=== PATIENT | female | born 1995 | race Caucasian/White ===

== ENCOUNTER 2017-09-29 11:19 | Emergency (ER) | payer OTHER, SELFPAY ==
[2017-09-29 11:20] VITALS: BP 115/63; PULSE 80; RESP 17; TEMP 37.1; O2SAT 98; BMI 25.5
--- NOTE | 2017-09-29 11:30 | NURSING ---
NO OLD EKGS
--- NOTE | 2017-09-29 11:34 | EKG12_ITS ---
Test Reason : AE Blood Pressure : / mmHG Vent. Rate : 076 BPM Atrial Rate : 076 BPM P-R Int : 156 ms QRS Dur : 082 ms QT Int : 362 ms P-R-T Axes : 049 059 037 degrees QTc Int : 407 ms Normal sinus rhythm Normal ECG Confirmed by DAYANA PEREZ MD ([id number]), technical editor YUNIOR DO ([id number]) on 09/30/2017 11:54:03 AM Referred By: DEON Confirmed By:DAYANA PEREZ MD
--- NOTE | 2017-09-29 11:40 | ED.RN ---
PT STATES THAT SHE THINKS THIS RELATED TO STRESS. PT STATES SHE DOES NOT HAVE MUCH OF A SUPPORT SYSTEM FAR UNDERSTANDING HER STRESS AND ANXIETY.
[2017-09-29] MEDS: hydrOXYzine PAM 25 MG Capsule PO (11:57)
[2017-09-29 12:52] VITALS: BP 113/62; PULSE 66; RESP 21; O2SAT 100
[2017-09-29 13:06] VITALS: RESP 16
--- NOTE | 2017-09-29 13:10 | ED.VISSUMM ---
- ER Visit Summary Date of Service: 09/29/17 Chief Complaint: Chest pain History of Present Illness: The patient is a 22 F who presents with chest pain and anxiety. Today she started with a dull pain in her left upper chest area. It radiates to her arm. Anxiety makes it worse. She denies shortness of breath. She has been having episodes like this for the past 3 years. She attributes it to her anxiety. She was on an antidepressant a few years ago but is currently not taking anything. She would like something for her anxiety to take at home. She is currently 15 weeks gestation. She denies any abdominal pain. She called her OB who sent her in here. Physical Examination: Vital signs reviewed. HEENT exam unremarkable. Heart is regular rate and rhythm without murmurs. Lungs are clear to auscultation. She does have left upper chest tenderness to palpation. Abdomen is soft and nontender. Extremities reveal no edema. Skin exam normal. Neurologic exam normal. Test Results: EKG is normal sinus rhythm with rate of 76. No ST changes. Troponin normal Emergency Department Course and Treatment: Patient was treated with Vistaril and feels better. We discussed the risks and benefits of giving Vistaril during . Patient wishes to treat as she states that her anxiety has become worse over the past couple of months. She wants something to take when her anxiety gets bad. I will give her this Vistaril for home. She will call her PCP and [employer] F[employer]ER for follow-up Treatment Plan: [] Disposition: Discharge Impression: Chest pain, anxiety This note was generated with [employer] dictation software. It may contain incorrect words, spelling, and punctuation that were not noted in review of the chart prior to signing ED Disposition - Plan for ED Patient: Chief Complaint: Chest Pain Referrals: Care Physician,No Primary [Primary Care Provider] -
--- NOTE | 2017-09-29 13:59 | ED.DEP ---
ED Disposition - Plan for ED Patient: Disposition: Home or Assisted Living Chief Complaint: Chest Pain Instructions: ED Chest Pain NonCardiac Prescriptions: hydrOXYzine pamoate capsule [Vistaril] 25 mg PO TID PRN PRN #30 cap PRN Reason: Anxiety Referrals: Care Physician,No Primary [Primary Care Provider] -
[2017-09-29 14:32] VITALS: BP 106/53; PULSE 94; RESP 16; O2SAT 98
== END 2017-09-29 14:33 | disposition home or self-care (01) ==
PROVIDERS: Emergency Provider Emergency Medicine
DX: O99.89 Other specified diseases and conditions complicating pregnancy, childbirth and the puerperium (principal); R07.9 Chest pain, unspecified; O99.342 Other mental disorders complicating pregnancy, second trimester; F41.9 Anxiety disorder, unspecified; Z3A.15 15 weeks gestation of pregnancy
CPT/HCPCS: 84484; 93005; 99283

== ENCOUNTER 2017-12-05 22:30 | Outpatient (CLI) | payer OTHER, SELFPAY ==
[2017-12-05 23:14] VITALS: BMI 27.4
[2017-12-05 23:28] LABS: Bacteria 0 SEEN /hpf (None Seen); Mucous, Urine 0 SEEN /hpf (<or=2+); Red Blood Cells-Urine 0 SEEN /hpf (0-5)
[2017-12-05 23:32] LABS: Color, Urine Yellow (Yellow); Glucose, Dipstick Normal (Normal); Ketone-Dipstick Negative (Negative); Leukocyte Esterase-Dipstick Negative /ul (Negative); Nitrite-Dipstick Negative (Negative); Occult Blood-Urine Negative /ul (Negative); Protein-Dipstick Negative (Negative); Urine Bilirubin Dipstick Negative (Negative); Urine Clarity Clear (Clear); Urine Urobilinogen Normal (Normal)
[2017-12-05 23:50] LABS: Squamous Epithelial Cells - UA 0-5 SEEN /hpf (5-10); White Blood Cells 0-5 SEEN /hpf (0-5)
--- NOTE | 2017-12-12 16:51 | OB.TRI.NOTE ---
History of Present Illness Date of Service: 12/05/17 Was patient seen by the physician?: No Reason For Visit: abdominal pain, back marco and headache. Date of Service: 12/05/17 Final ROGELIO: 03/20/18 Final ROGELIO Source: LMP Gestational age: 26 Weeks and 0 Days History of Present Illness: at 25 weeks with complaint of abdominal pain, back pain, and headache. Allergies No Known Allergies Allergy (Verified 12/05/17 23:15) NST - FHR Rate Baby A Baseline: 155 Variability:: Moderate Accelerations:: 15 x 15 Decelerations:: None NST Reactive:: Yes FHR Category:: Category I Uterine Activity:: None Impression/Plan A: Acute abdominal pain, False labor P: 1) PTL precautions given. No signs of labor. 2) D/C home.
== END 2017-12-06 00:10 | disposition home or self-care (01) ==
LOC: WPOUT 22:55 → WP 22:55
PROVIDERS: Visit Provider Obstetrics & Gynecology
DX: O47.02 False labor before 37 completed weeks of gestation, second trimester (principal); Z3A.25 25 weeks gestation of pregnancy
CPT/HCPCS: 59050; 81001; 99218; G0378

== ENCOUNTER 2018-03-09 21:47 | Outpatient (CLI) | payer OTHER, SELFPAY ==
[2018-03-09 22:21] VITALS: BMI 27.4
[2018-03-10 00:20] VITALS: RESP 16
--- NOTE | 2018-03-15 16:16 | OB.TRI.NOTE ---
History of Present Illness Date of Service: 03/15/18 Was patient seen by the physician?: No Reason For Visit: R/O LABOR Date of Service: 03/09/18 Final ROGELIO: 03/20/18 Final ROGELIO Source: LMP Gestational age: 38 Allergies No Known Allergies Allergy (Verified 03/09/18 22:23) Physical Exam Vitals: Vital Signs Resp 16 03/10/18 00:20 NST - FHR Rate Baby A Baseline: 150 bpm Variability:: Moderate Accelerations:: 15 x 15 Decelerations:: None NST Reactive:: Yes FHR Category:: Category I Uterine Activity:: irreg ctxs Impression/Plan 22 YOF high risk multigravida, 38 weeks false labor home w/ labor precautions, f/u in office as scheduled or prn
== END 2018-03-10 00:20 | disposition home or self-care (01) ==
LOC: WPOUT 22:14 → WP 03-10 08:10
PROVIDERS: Visit Provider Obstetrics & Gynecology
DX: O47.1 False labor at or after 37 completed weeks of gestation (principal); O09.43 Supervision of pregnancy with grand multiparity, third trimester; Z3A.38 38 weeks gestation of pregnancy
CPT/HCPCS: 59050; 99218; G0378

== ENCOUNTER 2018-03-21 17:04 | Inpatient (IN) | payer OTHER, SELFPAY ==
[2018-03-21 17:02] VITALS: BMI 27.7
[2018-03-21 17:25] LABS: Hematocrit 39.3 % (37-47); Hemoglobin 13.3 g/dl (12.0-15.0); Mean Corp Hgb Conc 33.8 g/gl (32-36); Mean Corpuscular Hgb 31.5 pg (27.0-32.0); Mean Corpuscular Volume 93.1 fL (81-99); Mean Platelet Vol. 10.8 fl (6.2-12.0); Platelet Count 216 K/mm3 (150-450); RBC Distribution Width SD 40.2 fl (35.1-43.9); Red Blood Count 4.22 M/mm3 (4.2-5.4); Scan Indicated on CBC? Y/N NO; White Blood Count 18.9 K/mm3 (4.4-11.0)
[2018-03-21] MEDS: Lactated Ringers 1,000 ML 50 ML IV (17:25)
--- NOTE | 2018-03-21 17:56 | PCM.HP.OB ---
History Date of Admission: 03/19/14 - l&D triage Final ROGELIO: 03/20/18 Final ROGELIO Source: LMP Gestational age: 40 Weeks and 1 Days History of this : This is a 22 year-old, @ 40 1/7 weeks presents c/o ctxs. No VB/LOF. good Fm. ws 4-5 cm in office, found to be 6 cm on labor and delivery and was admitted. Her has been complicated by nausea and vomiting, history of depression, and tobacco use. She has a history of chlamydia and history of marijuana use earlier in the . Allergies No Known Allergies Allergy (Verified 03/09/18 22:23) Home Medications: Home Medications Vits [Prenatabs FA] 1 tablet PO DAILY 09/29/17 busPIRone [Buspar] 10 mg PO BID 12/05/17 Smoking Status: Current every day smoker Alcohol: None Number of Fetus(es): 1 Heart Tracin bpm, moderate variablity, no repetetive decelerations TOCO Analysis: ctx q 3-4 History Past Pregnancies: Past Pregnancies Delivery Date Name GA/Weeks Outcome Route Weight Infant Gender Labor Length Anesthesia Delivery Location Provider FOB Review of Systems Constitutional: Denies: Chills, Fever Respiratory: Denies: Cough, Shortness of Breath Physical Exam General: Alert, No apparent distress, - - Very uncomfortable and breathing through contractions. Cardiovascular: Regular rate Lungs: Normal air movement Abdomen: Soft, Non Tender, Non-Distended, Gravid, Appropriate for Gestational Age Extremities:: Other - Edema 1+ SUPERVISOR EXTRUDING DEPARTMENT: Normal external genitalia Estimated gestational size: Appropriate for gestational size Presentation: Cephalic Cervix Dilation (cm): 8 Station: 0 Effacement (%): 80 Assessment/Plan This is a 22 year-old, at 40-1/7 weeks gestation with spontaneous labor. Estimated weight is less than 4500 g and pelvis is clinically adequate to expect vaginal delivery. May have epidural, nitrous oxide or Nubain as needed for labor pain control. History of marijuana use, will obtain urine tox screen and social service consult.
[2018-03-21] MEDS: Oxytocin 30 units/NS 500 ml 30 UNITS/500 ML IV.SOLN 334 UNITS IV (19:00)
--- NOTE | 2018-03-21 19:11 | PCM.OB.VAG ---
Vaginal Delivery Maternal Presentation: Active Labor Amniotic Membrane Rupture Type: Artificial Amniotic Fluid Description: Clear Final ROGELIO: 03/20/18 Gestational age: 40 Weeks and 1 Days Date of Procedure: 03/21/18 Pre-Operative Diagnosis: labor Post-Operative Diagnosis: same Surgery/ Procedure Performed: Spontaneous Vaginal Delivery Anesthesiologist: April Frazier Type of Anesthesia: Epidural Description of Procedure: A vigorous female was delivered CORDELL over an intact perineum. The was delivered easily through the loose nuchal cord. The remainder the infant was delivered with maternal pushing and gentle traction only in less than 15 seconds. The Pitocin infusion was initiated for active management of the third stage. The cord was clamped and cut after 1 minute. The was attended to by the waiting nursing staff. The placenta was delivered spontaneously and intact. The cervix and vagina were intact. Sponge and needle counts were correct. A vaginal sweep was completed by me. Presentation: CORDELL Placental Delivery Description: Spontaneous Placenta Disposition: [facility] Cord Vessel Description: 3 Vessels Nuchal Cord Compression: Without compression Cord Entanglement: Around neck x 1, loose Drain: - - none Estimated Blood Loss: 300 A gender: Female (1 minute): 9 (5 minute): 9 Episiotomy Description: None Laceration: None Medications given after delivery: IV Pitocin Complications: None
[2018-03-21] MEDS: Oxytocin 30 units/NS 500 ml 30 UNITS/500 ML IV.SOLN 167 UNITS IV (19:30)
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
[2018-03-22] MEDS: Naproxen 250 MG Tablet PO ×3 (00:11→20:27)
[2018-03-22 00:22] VITALS: BP 114/75; PULSE 79; RESP 17; TEMP 37.2
[2018-03-22 04:00] VITALS: PULSE 82; RESP 18; TEMP 37.3
[2018-03-22 08:20] VITALS: BP 111/64; PULSE 74; RESP 18; TEMP 36.8; O2SAT 96
--- NOTE | 2018-03-22 08:59 | PN.OBGYN_ITS ---
Subjective: Patient doing well per patient. Ambulating and taking PO without difficulty. Voiding and passing flatus. Denies any chest pain, shortness of breath, leg pain, increased vaginal bleeding or clots. without difficulty. Tobacco use, declines cessation. Would like to go home today. Objective: Perineum intact, lochia rubra, small amount, no clots. - Physical Exam General: Alert, Oriented x3, Cooperative Lungs: Clear to auscultation, Normal air movement, No rhonchi, No wheeze Cardiovascular: Regular rate, Regular Rhythm, No murmurs Abdomen: Bowel Sounds Present, Soft, - - Fundus firm 2 below U Extremities: No edema, - - Jose M's negative Psych/Mental Status: Normal Affect, Appropriate Vital Signs Temp Pulse Resp BP Pulse Ox 98.2 F 74 18 111/64 96 03/22/18 08:20 03/22/18 08:20 03/22/18 08:20 03/22/18 08:20 03/22/18 08:20 Oxygen Delivery Method Room Air Weight: 171 lb 11.841 oz Body Mass Index (BMI) 27.7 Laboratory Tests Past 24 Hrs 03/21/18 03/21/18 17:10 17:10 WBC 18.9 H RBC 4.22 Hgb 13.3 Hct 39.3 MCV 93.1 MCH 31.5 MCHC 33.8 RDW 12.0 RDW Differential 40.2 Plt Count 216 MPV 10.8 Blood Type O POSITIVE Antibody Screen NEGATIVE Medical Necessity - Tobacco Use Smoking Status: Current every day smoker Assessment/Plan A:PPD #1 of viable female infant P: 1) Routine care. 2) Requesting D/C home at 24hrs 3) Workers Compensation Consultant consult placed by , will see patient today. No current drug or alcohol use. 4) Follow up in 2 weeks and 6 weeks .
--- NOTE | 2018-03-22 09:05 | PCM.DCVAG ---
Discharge Diet: No Restrictions Discharge Activity: Return to Normal Activity, May not drive while taking narcotic pain medications., May Shower May resume sexual activity in: 4-6 weeks Weight Bearing Status: Full weight bearing Call your doctor if your incision/area has: Continuous Slow Oozing, Sudden Increased Bleeding, Increased Pain/ Swelling, Increased Redness, Foul Smelling Discharge, Swelling at the incision site Call your doctor if you observe: Fever of 101 or Higher, Coldness, Increased Pain, Numbness or Tingling, Inability to urinate, Inability to have a bowel movement, Using more than one pad per hour, Shortness of breath, Chest pain, Increased palpitations (irregular heartbeat), Calf discomfort, Uncontrolled pain Additional Instructions: If you experience any of the following, contact your healthcare provider. Bleeding that soaks a pad every hour for 2 hours Fever 100.4 or higher Unrelieved incision or abdominal pain Swelling, redness, discharge or bleeding from your incision or episiotomy site Your incision begins to separate Problems urinating (including inability to urinate or burning while urinating). Visual changes Severe headache Flu-like symptoms Pain or redness in one of both of your breasts Pain, warmth, tenderness or swelling in your legs, especially the calf area Frequent nausea and vomiting Symptoms of depression or anxiety If you experience any of the following, call 911 or go to the nearest Emergency Room. Chest pain Problems breathing Seizure activity Partial or complete paralysis of a body part, slurred speech, weakness or drooping of the face, or a sudden inability to walk or hold your balance Allergies/Adverse Reactions: Allergies No Known Allergies Allergy (Verified 03/09/18 22:23) Medications to take at Discharge Vits [Prenatabs FA ] 1 tablet PO DAILY 09/29/17 Acetaminophen [Tylenol] 1,000 mg PO Q8H PRN PRN tablet 03/22/18 Naproxen [Naprosyn] 250 - 500 mg PO Q8H PRN PRN tablet 03/22/18 Please Follow Up With: Camryn Madrid MD When: 2 weeks and 6 weeks Primary Care Physician: Care Physician,No Primary [Primary Care Provider] - Test Results: Test results from this visit will be discussed in further detail at your follow-up appointment, if applicable.
--- NOTE | 2018-03-22 11:02 | NURSING ---
Patient is lying in bed holding baby. Baby is sleeping and mom looks comfortable. All devices within reach. Bed is in lowest position. Patient was educated on her paperwork that needed to be completed today before being discharged. That includes the certificate, CPR video,feeding log and making a call to aerospace engineer officer armament and scheduling an appointment. Significant other is present and sitting on the couch. Will check on mom shortly for VS.
[2018-03-22 11:46] VITALS: BP 109/70; PULSE 80; RESP 16; TEMP 37
--- NOTE | 2018-03-22 13:49 | NURSING ---
This nurse reviewed the charting completed by Lex Quevedo, student nurse and it is complete.
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
[2018-03-22 15:54] VITALS: BP 101/57; PULSE 95; RESP 16; TEMP 36.8; O2SAT 96
[2018-03-22 20:21] VITALS: BP 101/52; PULSE 84; RESP 16; TEMP 36.8
[2018-03-23 01:10] VITALS: BP 111/65; PULSE 62; RESP 16; TEMP 36.3
[2018-03-23 09:40] VITALS: BP 100/67; PULSE 70; RESP 20; TEMP 36.6; O2SAT 98
--- NOTE | 2018-03-23 10:04 | DCINST_ITS ---
Discharge Diet: No Restrictions Discharge Activity: Return to Normal Activity, May not drive while taking narcotic pain medications., May Shower May resume sexual activity in: 4-6 weeks Weight Bearing Status: Full weight bearing Call your doctor if your incision/area has: Continuous Slow Oozing, Sudden Increased Bleeding, Increased Pain/ Swelling, Increased Redness, Foul Smelling Discharge, Swelling at the incision site Call your doctor if you observe: Fever of 101 or Higher, Coldness, Increased Pain, Numbness or Tingling, Inability to urinate, Inability to have a bowel movement, Using more than one pad per hour, Shortness of breath, Chest pain, Increased palpitations (irregular heartbeat), Calf discomfort, Uncontrolled pain Additional Instructions: If you experience any of the following, contact your healthcare provider. * Bleeding that soaks a pad every hour for 2 hours * Fever 100.4 or higher * Unrelieved incision or abdominal pain * Swelling, redness, discharge or bleeding from your incision or episiotomy site * Your incision begins to separate * Problems urinating (including inability to urinate or burning while urinating). * Visual changes * Severe headache * Flu-like symptoms * Pain or redness in one of both of your breasts * Pain, warmth, tenderness or swelling in your legs, especially the calf area * Frequent nausea and vomiting * Symptoms of depression or anxiety If you experience any of the following, call 911 or go to the nearest Emergency Room. * Chest pain * Problems breathing * Seizure activity * Partial or complete paralysis of a body part, slurred speech, weakness or drooping of the face, or a sudden inability to walk or hold your balance Allergies/Adverse Reactions: Allergies No Known Allergies Allergy (Verified 03/09/18 22:23) Medications to take at Discharge Vits [Prenatabs FA ] 1 tablet PO DAILY 09/29/17 Acetaminophen [Tylenol] 1,000 mg PO Q8H PRN PRN tablet 03/22/18 Naproxen [Naprosyn] 250 - 500 mg PO Q8H PRN PRN tablet 03/22/18 Please Follow Up With: Camryn Madrid MD When: In 4-6 weeks for visit. Primary Care Physician: Care Physician,No Primary [Primary Care Provider] - Test Results: Test results from this visit will be discussed in further detail at your follow- up appointment, if applicable.
--- NOTE | 2018-03-23 10:56 | PN.OBGYN_ITS ---
Subjective: Pain well controlled. Average lochia. - Physical Exam General: Alert, Cooperative, No apparent distress Vital Signs Temp Pulse Resp BP Pulse Ox 97.9 F 70 20 H 100/67 98 03/23/18 09:40 03/23/18 09:40 03/23/18 09:40 03/23/18 09:40 03/23/18 09:40 Oxygen Delivery Method Room Air Weight: 77.9 kg Body Mass Index (BMI) 27.7 Medical Necessity - Tobacco Use Smoking Status: Current every day smoker Assessment/Plan day #2 status post spontaneous vaginal delivery. breast- feeding and doing well. Patient desires discharge home today.
== END 2018-03-23 14:55 | disposition home or self-care (01) | DRG 807 ==
LOC: WPOUT 17:05
PROVIDERS: Admitting Provider Obstetrics & Gynecology; Referring Provider Obstetrics & Gynecology; Visit Provider Obstetrics & Gynecology
DX: O48.0 Post-term pregnancy (principal); Z37.0 Single live birth; Z3A.40 40 weeks gestation of pregnancy; O69.81X0 Labor and delivery complicated by cord around neck, without compression, not applicable or unspecified; O99.334 Smoking (tobacco) complicating childbirth; F17.200 Nicotine dependence, unspecified, uncomplicated
CPT/HCPCS: 59025; 59050; 85027; 86850; 86900; 99218; J7120; G0378

== ENCOUNTER 2019-03-25 04:51 | Emergency (ER) | payer OTHER, MEDICAID, SELFPAY ==
[2019-03-25 04:52] VITALS: BP 105/87; PULSE 84; RESP 14; TEMP 36.2; O2SAT 99; BMI 23.8
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
[2019-03-25 06:27] VITALS: RESP 16
== END 2019-03-25 06:30 | disposition home or self-care (01) ==
PROVIDERS: Emergency Provider Emergency Medicine
DX: S06.0X0A Concussion without loss of consciousness, initial encounter (principal); Y04.2XXA Assault by strike against or bumped into by another person, initial encounter; Y93.89 Activity, other specified; Y92.818 Other transport vehicle as the place of occurrence of the external cause; F17.200 Nicotine dependence, unspecified, uncomplicated
CPT/HCPCS: 70450; 99282

== ENCOUNTER 2019-05-25 23:20 | Emergency (ER) | payer OTHER, MEDICAID, SELFPAY ==
[2019-05-25 23:22] VITALS: BP 120/65; PULSE 86; RESP 15; TEMP 36; O2SAT 100; BMI 23.0
[2019-05-25] MEDS: 0.9% Normal Saline 1,000 ML 999 ML IV (23:39)
[2019-05-25] MEDS: proMETHazine 25 MG/ML Syringe 6.25 MG IV (23:39)
--- NOTE | 2019-05-25 23:53 | ED.VISSUMM ---
- ER Visit Summary Date of Service: 05/25/19 Chief Complaint: Nausea, vomiting History of Present Illness: The patient is a 23 F presenting with nausea, vomiting. Patient states she is 9 weeks . States she has been nauseated for the past several weeks. She states today she has been unable to keep fluids down. States she has vomited approximately 10 times. Denies abdominal pain. Denies vaginal bleeding. She is G3, P2 and follows with Tiffany Chacon. She is taking doxylamine and vitamin B6. Denies other complaints. Physical Examination: Vitals are stable. Patient is afebrile. Alert no acute distress. HEENT exam dry mucous membranes Neck is supple. Lungs are clear and equal bilaterally. Heart is regular rate and rhythm. Abdomen is soft nontender nondistended. No guarding or rebound Extremities are unremarkable. Skin is warm and dry. No focal neurologic deficit. Remainder of exam is unremarkable. Emergency department course and Treatment: Patient was given IV fluids, Phenergan. Basic metabolic panel is unremarkable. She is feeling improved in the emergency department. She is able to tolerate p.o. fluids. Discussed with Tiffany Chacon and the patient will follow-up in the office. She is given a prescription for Phenergan. Advised return to ED for worsening complaints. Disposition: Discharge home Impression: Vomiting in This note was generated with [employer] dictation software. It may contain incorrect words, spelling, and punctuation that were not noted in review of the chart prior to signing ED Disposition - Plan for ED Patient: Instructions: Care for a Healthy Baby, VOMITING (6y-Adult) Prescriptions: proMETHazine tablet [Phenergan] 25 mg PO Q6H PRN PRN #10 tab PRN Reason: Nausea Prescription Printed Referrals: Tiffany Chacon CNM [Certified Nurse Patient Relations Specialist] -
[2019-05-26 00:04] LABS: Anion Gap 7 (5-15); BUN 7 mg/dL (7-18); BUN/Creat Ratio 12.4 RATIO (10-20); Calcium,Total 8.9 mg/dL (8.5-10.1); Chloride 104 mmol/L (98-107); Creatinine, Serum 0.56 mg/dL (0.55-1.02); EST Glomerular Filtration Rate 141 mL/min (>60); Est Glom Filt Rate - Afr Amer 170 mL/min (>60); Estimated Creatinine Clearance 146.26 ml/min; Glucose 97 mg/dL (74-106); Potassium 3.6 mmol/L (3.5-5.1); Sodium Level 137 mmol/L (136-145)
--- NOTE | 2019-05-26 00:17 | DCINST.ED_ITS ---
ED Disposition - Plan for ED Patient: Instructions: VOMITING (6y-Adult), Care for a Healthy Baby Prescriptions: proMETHazine tablet [Phenergan] 25 mg PO Q6H PRN PRN #10 tab PRN Reason: Nausea Prescription Printed Referrals: Tiffany Chacon CNM [Certified Nurse Market Research Manager] -
--- NOTE | 2019-05-26 00:19 | DCINST.ED_ITS ---
ED Disposition - Plan for ED Patient: Instructions: Care for a Healthy Baby, VOMITING (6y-Adult) Prescriptions: proMETHazine tablet [Phenergan] 25 mg PO Q6H PRN PRN #10 tab PRN Reason: Nausea Prescription Printed Referrals: Tiffany Chacon CNM [Certified Nurse Ferry Terminal Supervisor] -
== END 2019-05-26 00:29 | disposition home or self-care (01) ==
PROVIDERS: Emergency Provider Emergency Medicine
DX: O21.9 Vomiting of pregnancy, unspecified (principal); O99.331 Smoking (tobacco) complicating pregnancy, first trimester; F17.200 Nicotine dependence, unspecified, uncomplicated; Z3A.09 9 weeks gestation of pregnancy
CPT/HCPCS: 80048; 96361; 96374; 99281; J7030; A4216

== ENCOUNTER 2019-11-30 06:28 | Outpatient (CLI) | payer OTHER, MEDICAID, SELFPAY ==
[2019-11-30 06:39] VITALS: BMI 28.6
[2019-11-30 06:40] VITALS: TEMP 36.8
[2019-11-30 06:43] VITALS: BP 110/57; PULSE 96
[2019-11-30 07:13] VITALS: O2SAT 98
[2019-11-30 07:16] LABS: Color, Urine Yellow (Yellow); Glucose, Dipstick Normal (Normal); Ketone-Dipstick 15 mg/dl (Negative); Leukocyte Esterase-Dipstick Negative /ul (Negative); Mucous, Urine 0 SEEN /hpf (<or=2+); Nitrite-Dipstick Negative (Negative); Occult Blood-Urine Negative /ul (Negative); Protein-Dipstick Negative (Negative); Red Blood Cells-Urine 0 SEEN /hpf (0-5); Urine Bilirubin Dipstick Negative (Negative); Urine Clarity Clear (Clear); Urine Urobilinogen Normal (Normal); White Blood Cells 0 SEEN /hpf (0-5)
[2019-11-30 07:47] LABS: Bacteria 1+ /hpf (None Seen); Squamous Epithelial Cells - UA 0-5 SEEN /hpf (5-10)
[2019-11-30 08:30] LABS: Amphetamine Urine VISTA NEGATIVE (<1000 ng/mL); Barbiturate Urine VISTA NEGATIVE (< 200 ng/mL); Benzodiazepine Urine VISTA NEGATIVE (< 200 ng/mL); Cocaine Urine VISTA NEGATIVE (< 300 ng/mL); Ecstacy Urine VISTA NEGATIVE (< 500 ng/mL); Methadone Urine VISTA NEGATIVE (< 300 ng/mL); PCP Urine VISTA NEGATIVE (< 25 ng/mL); THC Urine VISTA POSITIVE (< 50 ng/mL); Vista UDS pH Range 6
[2019-11-30 09:09] LABS: Group B Strep DNA By PCR Negative (Negative); Internal Control PASS; Probe Check PASS; Specimen Processing Control PASS
--- NOTE | 2019-12-01 11:11 | OB.TRI.HP_ITS ---
- Problem List (1) 36 weeks gestation of Status: Acute (2) Uterine contractions Status: Acute History of Present Illness Date of Service: 11/30/19 Was patient seen by the physician?: Yes Reason For Visit: R/O LABOR Final ROGELIO: 12/24/19 Final ROGELIO Source: LMP Gestational age: 36 Weeks and 5 Days History of Present Illness: Patient started having contractions overnight that were regular and painful. Since being in triage she reports her contractions have subsided. No bleeding or leaking of fluid. Good movement. She feels comfortable to go home as she is no longer having contractions. Allergies No Known Allergies Allergy (Verified 05/25/19 23:21) Laboratory Studies: Laboratory Tests 11/30/19 11/30/19 11/30/19 Range/Units 07:00 06:55 06:50 Urine Color Yellow (Yellow) Urine Clarity Clear (Clear) Urine pH 7.0 (5.0 - 8.0) Ur Specific [place] 1.010 (1.002-1.030) Urine Protein Negative (Negative) mg/dl Urine Glucose (UA) Normal (Normal) mg/dl Urine Ketones 15 H (Negative) mg/dl Urine Occult Blood Negative (Negative) /ul Urine Nitrite Negative (Negative) Urine Bilirubin Negative (Negative) mg/dL Urine Urobilinogen Normal (Normal) mg/dl Ur Leukocyte Esterase Negative (Negative) /ul Urine RBC 0 SEEN (0-5) /hpf Urine WBC 0 SEEN (0-5) /hpf Ur Squamous Epith Cells 0-5 SEEN (5-10) /hpf Urine Bacteria 1+ (None Seen) /hpf Urine Mucus 0 SEEN (<or=2+) /hpf Urine Opiates Screen NEGATIVE (< 300 ng/mL) Urine Methadone Screen NEGATIVE (< 300 ng/mL) Ur Barbiturates Screen NEGATIVE (< 200 ng/mL) Ur Phencyclidine Scrn NEGATIVE (< 25 ng/mL) Ur Amphetamines Screen NEGATIVE (<1000 ng/mL) U Methamphetamin-MDMA NEGATIVE (< 500 ng/mL) U Benzodiazepines Scrn NEGATIVE (< 200 ng/mL) Urine Cocaine Screen NEGATIVE (< 300 ng/mL) U Cannabinoids Screen POSITIVE H (< 50 ng/mL) Ur Drug Screen Comment Group B Strep DNA Negative (Negative) Specimen Comment Not Reportable Physical Exam Vitals: Vital Signs Temp Pulse BP Pulse Ox 98.3 F 96 110/57 L 98 11/30/19 06:40 11/30/19 06:43 11/30/19 06:43 11/30/19 07:13 General: Alert, No apparent distress Abdomen: Soft, Non Tender, Gravid Extremities:: No edema Neurological: Neuro grossly intact Estimated gestational size: Appropriate for gestational size Cervix Dilation (cm): 1 - per RN Station: -3 Effacement (%): 50 NST - FHR Rate Baby A Baseline: 120 Variability:: Moderate Accelerations:: 15 x 15 Decelerations:: None NST Reactive:: Yes FHR Category:: Category I Uterine Activity:: Irregular ctx's Impression/Plan Patient 1 cm dilated. Contractions have resolved. labor precautions discussed. GBS collected and urine drug screen sent. Patient notified and consented to urine drug screen. To schedule follow-up in the office.
--- OUTSIDE RECORDS SUMMARY | 2020-04-06 12:13 | XMS RPT_ITS | CCD ---
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 Papanicolaou smear of cervix with low grade squamous intraepithelial lesion (LGSIL) 03-17-2020 - Subsequent hospital [facility] 03-17-2020 visit by physician 02-07-2020 - Telephone encounter Toothache No Pcp Internal Medicine 02-07-2020 (History) Reform Comment: Toothache Procedures Procedure Name Date Provider Location Urine test 03-17-2020 Elyssa Dahl Br[facility] ([id number]) visual color cmprsn meths Antibody screen 06-14-2019 [facility] ([id number] ) Comment: Performed By: #### GLTGST ## ## [facility] [address], [place] [id number] Plan of Treatment Plan Description Date Location DTAP,TDAP,TD (4 - Td) DTAP,TDAP,TD (4 - Td) 02-10-2028 - [facility] 02-10-2028 ([id number]) PAP TESTING PAP TESTING 02-21-2023 - [facility] 02-21-2023 ([id number]) PAP TESTING PAP TESTING 08-08-2021 - [facility] 08-08-2021 ([id number]) INFLUENZA (#1) INFLUENZA (#1) 2020 - [facility] 02-19-2020 ([id number]) HPV VACCINE (1 - 2-dose HPV VACCINE (1 - 2-dose 2006 - [facility] series) series) 2006 ([id number]) MENINGOCOCCAL B: Consider MENINGOCOCCAL B: Consider 2005 - [facility] based on risk (1 of 2 - based on risk (1 of 2 - 2005 (33719) Risk Bexsero 2-dose Risk Bexsero 2-dose series) series) BACT/RODGER VAG GRAM BACT/RODGER VAG GRAM 02-21-2021 [facility] STAIN STAIN Microbiology ([id number]) Routine care and examination 1 Occurrences starting 02/22/2020 until 02/21/2021 Comment: 1 Occurrences starting 02/21 until 02/21/2021 COLPOSCOPY COLPOSCOPY Procedures Routine ASCUS with [facility] ([id number]) positive high risk HPV cervical Ordered: 03/17/2020 Comment: Ordered: 03/17/2020 GC/CHLAMYDIA DNA DET GC/CHLAMYDIA DNA DET Lab Routine [facility] ([id number]) care and examination Ordered: 02/22/2020 Comment: Ordered: 02/22/2020 PAP FLUID CERVICAL PAP FLUID CERVICAL DIAGNOSTIC [facility] ([id number]) DIAGNOSTIC Lab Routine Papanicolaou smear of cervix with low grade squamous intraepithelial lesion (LGSIL) Ordered: 02/22/2020 Comment: Ordered: 02/22/2020 SURGICAL PATHOLOGY SURGICAL PATHOLOGY Lab Routine ASCUS [facility] ([id number]) with positive high risk HPV cervical Ordered: 03/17/2020 Comment: Ordered: 03/17/2020 no information [facility] ([id number]) Immunizations Vaccine Notes Status Date Location Chicken Pox (disease) Chicken Pox (disease) (completed) 09-28-2000 - [facility] 09-28-2000 ([id number]) DTaP (Age<7) diphtheria, tetanus (completed) 11-23-2000 - [facility] toxoids and acellular 11-23-2000 ([id number] ) pertussis vaccine DTaP (Age<7) diphtheria, tetanus (completed) 12-20-1996 - [facility] toxoids and acellular 12-20-1996 ([id number] ) pertussis vaccine HIB, PRP-D, Booster haemophilus (completed) 01-16-1997 - [facility] influenzae type b 01-16-1997 ([id number]) vaccine, PRP-D conjugate Hepatitis B Peds/Adol hepatitis B vaccine, (completed) 09-05-1996 - [facility] pediatric or 09-05-1996 ([id number]) pediatric/adolescent dosage Hepatitis B Peds/Adol hepatitis B vaccine, (completed) 1995 - [facility] pediatric or 1995 ([id number]) pediatric/adolescent dosage Hepatitis B Peds/Adol hepatitis B vaccine, (completed) 1995 - [facility] pediatric or 1995 ([id number]) pediatric/adolescent dosage Influenza Vaccine influenza virus (completed) 05-07-2010 - [facility] NASAL Tri (reflects vaccine, live, 05-07-2010 ([id number] ) Quad for ) attenuated, for intranasal use Influenza Vaccine influenza virus (completed) 03-18-2009 - [facility] NASAL Tri (reflects vaccine, live, 03-18-2009 ([id number] ) Quad for ) attenuated, for intranasal use Influenza Vaccine influenza virus (completed) 04-10-2008 - [facility] NASAL Tri (reflects vaccine, live, 04-10-2008 (74991 ) Quad for ) attenuated, for intranasal use Influenza Seasonal influenza, (completed) 08-31-2019 - [facility] Inj Quadrivalent Age injectable, 08-31-2019 ([id number]) 3+ quadrivalent, contains preservative Influenza Seasonal influenza, (completed) 03-21-2018 - [facility] Inj Quadrivalent Age injectable, 03-21-2018 ([id number]) 3+ quadrivalent, contains preservative MMR measles, mumps and (completed) 11-23-2000 - [facility] rubella virus vaccine 11-23-2000 (80448 ) MMR measles, mumps and (completed) 09-05-1996 - [facility] rubella virus vaccine 09-05-1996 ([id number] ) IPV poliovirus vaccine, (completed) 11-23-2000 - [facility] inactivated 11-23-2000 ([id number]) Tdap (Age 7+) tetanus toxoid, (completed) 02-09-2018 - [facility] reduced diphtheria 02-09-2018 ([id number]) toxoid, and acellular pertussis vaccine, adsorbed Tetramune Tetramune (completed) 01-17-1996 - [facility] 01-17-1996 ([id number]) Tetramune Tetramune (completed) 1995 - [facility] 1995 (32103) Tetramune Tetramune (completed) 1995 - [facility] 1995 ([id number]) OPV trivalent poliovirus (completed) 03-26-1996 - [facility] vaccine, live, oral 03-26-1996 ([id number]) OPV trivalent poliovirus (completed) 1995 - [facility] vaccine, live, oral 1995 (05404) OPV trivalent poliovirus (completed) 1995 - [facility] vaccine, live, oral 1995 (59722) Payers Payer Name Policy Number Location [facility] [id number] CONRADO DO The following information is from the original human readable contentNo Payer Records Found Social History Type Social History Date Location Description History of tobacco use Cigarette Smoker [facility] ([id number]) History SDOH Financial 3 05-10-2019 - [facility] 05-10-2019 (04885) Tobacco use and Never used 01-10-2020 [facility] exposure 03-17-2020 (07897) Alcohol intake Current non-drinker of 01-10-2020 [facility] alcohol (finding) 03-17-2020 (59979) History SDOH Education 13 05-10-2019 - [facility] 05-10-2019 (69531) Tobacco smoking status Former smoker 01-10-2020 [facility] NHIS 03-17-2020 (65304) History SDOH Food 1 05-10-2019 - [facility] 05-10-2019 (53934) History SDOH Transport 2 05-10-2019 - [facility] 05-10-2019 (13342) Tobacco Comment 1-5 cigarettes per day 05-11-2019 - [facility] 05-11-2019 ([id number]) Sex Assigned At Not on file [facility] ([id number]) Exposure to SARS-CoV-2 Not sure [facility] (event) ([id number]) The following information is from the original human readable contentNo Social History Records Found History of Past Illness Problem Noted Date Resolved Date Supervision of high risk due to social problems, 1 07/11/2018 01/10/2020 first trimester Overview: 05/11/19-Seen by Gertrude from [facility] in office today. Provided patient with handouts on housing, food, and additiona l resources. Tiffany Chacon APRN.CNM Unsure of LMP (last menstrual period) as reason for ultrasou nd 05/11/2019 01/10/2020 scan Overview: 05/11/19-Unsure LMP, dating US ordered. Tiffany Chacon APRN.CNM Drug use affecting in first trimester 05/11/2019 01/10/2020 Overview: 05/11/19-Marijuana use prior to finding out she was . Once test positive stopped use. Reviewed risk to b yanci and advised continued cessation. Tiffany Chacon APRN.CNM Unplanned 05/10/2019 01/10/2020 Overview: 05/10/2019FOB is the father of her last child. This is an unplanned unwanted . She plans on keeping baby. Do es not want to give the baby up for adoption. I did refer patient to [facility] for counseling and support. TKRN Support system deficit 02/23/2018 01/10/2020 Overview: 02/23/18: FOB has current substance use issues, snorts drugs, patient intermittently been on speaking terms with him. They do not currently live together. Patient reports she feels safe and denies IPV. Sindy Murray APRN.CNM Anxiety during , antepartum, second trimester 11/3004/06/2018 Overview: 01/26/18 - Patient has reinitiated counseling. Sindy Murray APRN.CNM 12/29/17 - has a personal mentor, on meds - KJ History of chlamydia 08/16/2017 04/06/2018 History of marijuana use 08/16/2017 04/06/2018 Overview: 08/16/17 - reports using THC for a week t o help with nausea, denies use in the past 2 weeks - KJ Depression affecting 08/16/2017 8 Overview: 08/16/17 - appt schedule with [facility] for evaluation & treatment as patient concerned about possible bipolar as well - KJ History of sexually transmitted disease 08/16/2017 04/06/2018 Overview: 08/16/17 - patient with h/o positive IgM HSV but never had a genital ulcer or herpes outbreak thus does not have genital herp es - KJ Tobacco use during , antepartum 08/04/2017 04/06/2018 Overview: 01/26/18 - Patient started smoking again 06/23-1/3 ppd. Sindy Murray APRN.CNM 08/16/17 - quit smoking 1 week ago - KJ 08/04/2017Pt smokes 1 cigarette a day. D iscussed risks of smoking during . Advised pt to quit.TKRN Supervision of normal first 02/05/2014 Overview: Girl on us History of marijuana use 02/05/2014 07/10/2014 Overview: Random tox screens Quit smoking 08/30/2013 07/10/2014 Overview: 08/30/2013Pt recently quit smoking. Disc ussed risks of smoking during and advised pt to continue not smoking.TKN Nausea/vomiting in 08/30/2013 01/10/2020 Overview: 05/11/19-Reviewed Vitamin B6 and Unisom at [facility] visit, Rx sent. Tiffany Chacon APRN.CNM 05/10/2019Patient is complaining of naus ea and occasional vomiting in . Dietary considerations discussed . Vitamin B6 recommended. Advised patient to call/come in if she is unable to keep any f ood or fluids down in a 24-hour period.T KRN Patient request for diagnostic testing 08/30/2013 0 01/10/2020 Overview: 05/10/2019Patient desires nuchal ultrasound. TKRN History of ovarian cyst 06/03/2011 09/18/2013 RLQ abdominal pain 06/03/2011 09/18/2013 Oligomenorrhea 06/03/2011 09/18/2013 Closed fracture of metatarsal bone(s) 04/29/2010 Abdominal pain, other specified site 08/14/2009 Problem Noted Date Resolved Date Supervision of high risk due to social problems, 1 07/11/2018 01/10/2020 first trimester Overview: 05/11/19-[facility] today. Provided patient with handouts on housing, food, and additiona l resources. Tiffany Chacon APRN.CNM Unsure of LMP (last menstrual period) as reason for ultrasou nd 05/11/2019 01/10/2020 scan Overview: 05/11/19-Unsure LMP, dating US ordered. Tiffany Chacon APRN.CNM Drug use affecting in first trimester 05/11/2019 01/10/2020 Overview: 05/11/19-Marijuana use prior to finding out she was . Once test positive stopped use. Reviewed risk to b yanci and advised continued cessation. Tiffany Chacon APRN.CNM Unplanned 05/10/2019 01/10/2020 Overview: 05/10/2019FOB is the father of her last child. This is an unplanned unwanted . She plans on keeping baby. Do es not want to give the baby up for adoption. I did refer patient to [facility] for counseling and support. TKRN Support system deficit 02/23/2018 01/10/2020 Overview: 02/23/18: FOB has current substance use issues, snorts drugs, patient intermittently been on speaking terms with him. They do not currently live together. Patient reports she feels safe and denies IPV. Sindy Murray APRN.CNM Anxiety during , antepartum, second trimester 11/3004/06/2018 Overview: 01/26/18 - Patient has reinitiated counseling. Sindy Murray APRN.CNM 12/29/17 - has a personal mentor, on meds - KJ History of chlamydia 08/16/2017 04/06/2018 History of marijuana use 08/16/2017 04/06/2018 Overview: 08/16/17 - reports using THC for a week t o help with nausea, denies use in the past 2 weeks - KJ Depression affecting 08/16/2017 Overview: 08/16/17 - appt schedule with [facility] for evaluation & treatment as patient concerned about possible bipolar as well - KJ History of sexually transmitted disease 08/16/2017 04/06/2018 Overview: 08/16/17 - patient with h/o positive IgM HSV but never had a genital ulcer or herpes outbreak thus does not have genital herp es - KJ Tobacco use during , antepartum 08/04/2017 04/06/2018 Overview: 01/26/18 - Patient started smoking again 06/23-1/3 ppd. Sindy Murray APRN.CNM 08/16/17 - quit smoking 1 week ago - KJ 08/04/2017Pt smokes 1 cigarette a day. D iscussed risks of smoking during . Advised pt to quit.TKRN Supervision of normal first 02/05/2014 Overview: Girl on us History of marijuana use 02/05/2014 07/10/2014 Overview: Random tox screens Quit smoking 08/30/2013 07/10/2014 Overview: 08/30/2013Pt recently quit smoking. Disc ussed risks of smoking during and advised pt to continue not smoking.TKN Nausea/vomiting in 08/30/2013 01/10/2020 Overview: 05/11/19-Reviewed Vitamin B6 and Unisom at NOB visit, Rx sent. Tiffany Chacon APRN.CNM 05/10/2019Patient is complaining of naus ea and occasional vomiting in . Dietary considerations discussed . Vitamin B6 recommended. Advised patient to call/come in if she is unable to keep any f ood or fluids down in a 24-hour period.Tamela PITTMAN Patient request for diagnostic testing 08/30/2013 0 01/10/2020 Overview: 05/10/2019Patient desires nuchal ultrasound. TKRN History of ovarian cyst 06/03/2011 09/18/2013 RLQ abdominal pain 06/03/2011 09/18/2013 Oligomenorrhea 06/03/2011 09/18/2013 Closed fracture of metatarsal bone(s) 04/29/2010 Abdominal pain, other specified site 08/14/2009 Problem Noted Date Resolved Date Supervision of high risk due to social problems, 1 07/11/2018 01/10/2020 first trimester Overview: 05/11/19-Seen by [facility] in office today. Provided patient with handouts on housing, food, and additiona l resources. Tiffany Chacon APRN.CNM Unsure of LMP (last menstrual period) as reason for ultrasou nd 05/11/2019 01/10/2020 scan Overview: 05/11/19-Unsure LMP, dating US ordered. Tiffany Chacon APRN.CNM Drug use affecting in first trimester 05/11/2019 01/10/2020 Overview: 05/11/19-Marijuana use prior to finding out she was . Once test positive stopped use. Reviewed risk to b yanci and advised continued cessation. Tiffany Chacon APRN.CNM Unplanned 05/10/2019 01/10/2020 Overview: 05/10/2019FOB is the father of her last child. This is an unplanned unwanted . She plans on keeping baby. Do es not want to give the baby up for adoption. I did refer [facility] for [facility] and support. [facility] Support system deficit 02/23/2018 01/10/2020 Overview: 02/23/18: FOB has current substance use issues, snorts drugs, patient intermittently been on speaking terms with him. They do not currently live together. Patient reports she feels safe and denies IPV. Sindy Murray APRN.CNM Anxiety during , antepartum, second trimester 11/3004/06/2018 Overview: 01/26/18 - Patient has reinitiated counseling. Sindy Murray APRN.CNM 12/29/17 - has a personal mentor, on meds - KJ History of chlamydia 08/16/2017 04/06/2018 History of marijuana use 08/16/2017 04/06/2018 Overview: 08/16/17 - reports using THC for a week t o help with nausea, denies use in the past 2 weeks - KJ Depression affecting 08/16/2017 Overview: 08/16/17 - appt schedule with [facility] for evaluation & treatment as patient concerned about possible bipolar as well - KJ History of sexually transmitted disease 08/16/2017 04/06/2018 Overview: 08/16/17 - patient with h/o positive IgM HSV but never had a genital ulcer or herpes outbreak thus does not have genital herp es - KJ Tobacco use during , antepartum 08/04/2017 04/06/2018 Overview: 01/26/18 - Patient started smoking again 06/23-1/3 ppd. Sindy Murray APRN.CNM 08/16/17 - quit smoking 1 week ago - KJ 08/04/2017Pt smokes 1 cigarette a day. D iscussed risks of smoking during . Advised pt to quit.TKRN Supervision of normal first 02/05/2014 Overview: Girl on us History of marijuana use 02/05/2014 07/10/2014 Overview: Random tox screens Quit smoking 08/30/2013 07/10/2014 Overview: 08/30/2013Pt recently quit smoking. Disc ussed risks of smoking during and advised pt to continue not smoking.TKN Nausea/vomiting in 08/30/2013 01/10/2020 Overview: 05/11/19-Reviewed Vitamin B6 and Unisom at NOB visit, Rx sent. Tiffany Chacon APRN.CNM 05/10/2019Patient is complaining of naus ea and occasional vomiting in . Dietary considerations discussed . Vitamin B6 recommended. Advised patient to call/come in if she is unable to keep any f ood or fluids down in a 24-hour period.T TOYA Patient request for diagnostic testing 08/30/2013 0 01/10/2020 Overview: 05/10/2019Patient desires nuchal ultrasound. TKRN History of ovarian cyst 06/03/2011 09/18/2013 RLQ abdominal pain 06/03/2011 09/18/2013 Oligomenorrhea 06/03/2011 09/18/2013 Closed fracture of metatarsal bone(s) 04/29/2010 Abdominal pain, other specified site 08/14/2009 Problem Noted Date Resolved Date Supervision of high risk due to social problems, 1 07/11/2018 01/10/2020 first trimester Overview: 05/11/19-Seen by [facility] in office today. Provided patient with handouts on housing, food, and additiona l resources. Tiffany Chacon APRN.CNM Unsure of LMP (last menstrual period) as reason for ultrasou nd 05/11/2019 01/10/2020 scan Overview: 05/11/19-Unsure LMP, dating US ordered. Tiffany Chacon APRN.CNM Drug use affecting in first trimester 05/11/2019 01/10/2020 Overview: 05/11/19-Marijuana use prior to finding out she was . Once test positive stopped use. Reviewed risk to b yanci and advised continued cessation. Tiffany Chacon APRN.CNM Unplanned 05/10/2019 01/10/2020 Overview: 05/10/2019FOB is the father of her last child. This is an unplanned unwanted . She plans on keeping baby. Do es not want to give the baby up for adoption. I did refer patient to [facility] for counseling and support. TKRN Support system deficit 02/23/2018 01/10/2020 Overview: 02/23/18: FOB has current substance use issues, snorts drugs, patient intermittently been on speaking terms with him. They do not currently live together. Patient reports she feels safe and denies IPV. Sindy Murray APRN.CNM Anxiety during , antepartum, second trimester 11/3004/06/2018 Overview: 01/26/18 - Patient has reinitiated counseling. Sindy Murray APRN.CNM 12/29/17 - has a personal mentor, on meds - KJ History of chlamydia 08/16/2017 04/06/2018 History of marijuana use 08/16/2017 04/06/2018 Overview: 08/16/17 - reports using THC for a week t o help with nausea, denies use in the past 2 weeks - KJ Depression affecting 08/16/2017 8 Overview: 08/16/17 - appt schedule with [facility] for evaluation & treatment as patient concerned about possible bipolar as well - KJ History of sexually transmitted disease 08/16/2017 04/06/2018 Overview: 08/16/17 - patient with h/o positive IgM HSV but never had a genital ulcer or herpes outbreak thus does not have genital herp es - KJ Tobacco use during , antepartum 08/04/2017 04/06/2018 Overview: 01/26/18 - Patient started smoking again 06/23-06/22 ppd. Sindy Murray APRN.CNM 08/16/17 - quit smoking 1 week ago - KJ 08/04/2017Pt smokes 1 cigarette a day. D iscussed risks of smoking during . Advised pt to quit.TKRN Supervision of normal first 02/05/2014 Overview: Girl on us History of marijuana use 02/05/2014 07/10/2014 Overview: Random tox screens Quit smoking 08/30/2013 07/10/2014 Overview: 08/30/2013Pt recently quit smoking. Disc ussed risks of smoking during and advised pt to continue not smoking.TKN Nausea/vomiting in 08/30/2013 01/10/2020 Overview: 05/11/19-Reviewed Vitamin B6 and Unisom at NOB visit, Rx sent. Tiffany Chacon APRN.JANETTEM 05/10/2019Patient is complaining of naus ea and occasional vomiting in . Dietary considerations discussed . Vitamin B6 recommended. Advised patient to call/come in if she is unable to keep any f ood or fluids down in a 24-hour period.T KRN Patient request for diagnostic testing 08/30/2013 0 01/10/2020 Overview: 05/10/2019Patient desires nuchal ultrasound. TKRN History of ovarian cyst 06/03/2011 09/18/2013 RLQ abdominal pain 06/03/2011 09/18/2013 Oligomenorrhea 06/03/2011 09/18/2013 Closed fracture of metatarsal bone(s) 04/29/2010 Abdominal pain, other specified site 08/14/2009 History of Present Illness Elyssa Henderson - 02/22/2020 12:01 PM EDT Motion Picture Director offered: Patient declines. VISIT Conrado Do is a 24 year old year old here for visit. Delivery Summary: ROS/ Recovery: Feeding: Bottle feeding problems: Stopped after 4 weeks Menses since delivery: spotting Menstrual pattern prior to : Regular periods Calypso since delivery: Resumed Depression: admits to symptoms of depression. (Lines 3 & 4 applicable if either Lines 1 or 2 are positive) 1. Over the past 2 weeks have you felt down, depressed, or hopeless? Positive - Further Testing Indicated 2. Over the past two weeks, have you felt little interest or pleasure in doing things? 3. Have you had thoughts of harming yourself or others? Never 4. [place] Depression Scale (EPDS) Total Score: 20 Emotional support: No Bowel symptoms: Negative for abdominal discomfort, blood in stools or black stools and change in bowel habits Abdomen: N/A Bladder symptoms: No dysuria, gross hematuria, urinary frequency, urinary urgency, or incontinence Other issues: vaginal irritation with discharge Last Pap: 2019 LGSIL PAST MEDICAL HISTORY Diagnosis Date ? Chlamydia 2017 ? Concussion 2019 ? depression / anxiety ? Kidney infection Past HX of Kidney Infection ? Metatarsal bone fracture left ? Other and unspecified ovarian cyst Ovarian cyst ? depression PAST SURGICAL HISTORY Procedure Laterality Date ? INSERTION OF IUD 07/17/2014 removed FAMILY HISTORY Problem Relation Age of Onset ? Breast Cancer Mother ? Thyroid Father ? No Known Problems Sister ? No Known Problems Brother ? No Known Problems Brother ? Thyroid Paternal Grandmother ? Hypertension Paternal Grandfather ? Breast Cancer Maternal Grandmother ? Thyroid Maternal Grandfather ? No Known Problems Daughter ? No Known Problems Daughter Social History Tobacco Use ? Smoking status: Former Smoker Years: 10.00 Types: Cigarettes ? Smokeless tobacco: Never Used ? Tobacco comment: 1-5 cigarettes per day Substance Use Topics ? Alcohol use: No ? Drug use: No PHYSICAL EXAMINATION: BP 122/70 Wt 165 lb (74.8kg) LMP 02/25/2019 GENERAL: pleasant, female in no apparent distress HEENT: Normocephalic, atraumatic, mucus membranes moist and no lesions NECK: Supple, full range of motion, no adenopathy and thyroid normal DERMATOLOGY: Normal, without lesions, non-icteric and non-hirsute BREAST: soft, non-tender, symmetric, no dominant mass, normal nipple-areolar complex, no lymphadenopathy and no nipple discharge ABDOMEN: soft, non-tender and no masses. INCISION: N/A PELVIC: external genitalia normal, normal Bartholin's glands, urethra, [place]'s glands, no vulvar lesions, no cervical lesions, good vaginal support, physiologic discharge present, normal appearing perineal body and perianal region BIMANUAL: uterus normal size, shape and consistency, no adnexal masses and non-tender NEURO: alert and oriented x3,exam grossly non-focal EXTREMITIES: normal ASSESSMENT AND PLAN: 24 year old status post with normal course. Contraception plan: nexplanon in place Follow up: RTC for annual exams and PRN Pap Yeast/bv/gc/chlamydia today Elyssa Amezcua MD documented in this encounterElyssa Henderson - 02/26/2020 8:00 AM EDT documented in this encounterElyssa Henderson - 03/17/2020 12:25 PM EDT Motion Picture Director offered: Patient declines. Conrado Do is a 24 year old female who presents today for a colposcopy. Her last pap smear was ASCUS with positive HPV from February 2020. Patient has a history of abnormal pap: Yes. She has had prior treatment: none. test: negative UNIVERSAL PROTOCOL / SAFETY CHECKLIST Procedure to be performed: colposcopy Sign in Communication: Completed Time Out: Team Confirms the Correct Patient, Correct Procedure, Correct Site and Site Marking, Correct Position (if applicable), Prep and Dry Time (if applicable). Time: Affirmation of Time Out: YES Sign Out Discussion: Completed PROCEDURE: EXTERNAL GENITALIA: Normal in appearance without lesions VAGINA: Normal in appearance without lesions CERVIX: Speculum placed in vagina and excellent visualization of cervix achieved. Cervix swabbed x 3with 3% acetic acid solution. Cervix grossly normal. Squamocolumnar junction visualized. No acetowhite changes, punctations, mosaicism or atypical vasculature noted. BIOPSY: Done at 12:00 ECC: not done HEMOSTASIS: Obtained with pressure Procedure Summary: Patient tolerated procedure well and colposcopy was adequate. ASSESSMENT: inflammation PLAN: Specimens labeled and sent to Pathology. Will notify patient of results in 1-2 weeks. Elyssa Amezcua MD documented in this encounter Assessments Diagnosis care and examination - Primar y Routine follow-up Papanicolaou smear of cervix with low gr tiffanie squamous intraepithelial lesion (LGSIL) Diagnosis ASCUS with positive high risk HPV cervic al - Primary Cervical high risk human papillomavirus (HPV) DNA test positive Instructions Patient InstructionsVan Mariangel Bahena Ma - 03/17/2020 12:26 PM EDT YOUR RECOVERY It may take a few weeks for your cervix to heal. While your cervix heals, you may have: - Vaginal bleeding (less than a normal menstrual period) - Mild cramping - A brown-black vaginal discharge (similar to coffee grounds) which is a result of the paste used tohelp stop bleeding from the procedure Do NOT put anything in the vagina for 1 week after your colposcopy if your doctor does a biopsy of your cervix. This includes sex, tampons, and douches. If you have any discomfort, you may take an over the counter pain medication (motrin, advil, ibuprofen, tylenol, etc). If this does not relieve your discomfort, contact your doctor's office for a prescription strength pain medication. It is okay to wear a sanitary pad until the discharge and spotting stops. RISKS Although problems seldom occur with colposcopy, there can be some complications. You may feel faint during and shortly after the procedure as well as have some bleeding and vaginal discharge after the procedure. There is also a risk of infection after the procedure. These complications are rare and can be easily treated. You should contact you doctor is you have any of the following: - Heavy bleeding (more than your normal period) - Bleeding with clots - Severe abdominal pain - Fever (more than 100.4F) - Foul smelling vaginal discharge RESULTS If a biopsy was taken, we will have the results of your biopsy in 1-2 weeks. If you do not hear the results of your biopsy after 2 weeks, please contact your physicians office for the results. Depending on the biopsy results, your doctor will determine your follow up plan which may include further testing or treatments. STAYING HEALTHY After the procedure, you will need to see your doctor for follow up visits during the year. At thesevisits your doctor will check the health of your cervix with a pap smear. After three normal pap smears, your doctor will allow you to return to having exams once a year. If you have another abnormal pap smear, you may need closer follow up for longer or you may need additional treatment. By making a few lifestyle changes after the procedure, you can help protect the health of your cervix: - Have regular pelvic exams and pap smears as ordered by your doctor. - Stop smoking as smoking increases your risk of developing a cancer of the cervix - If you have more than one sexual partner, limit your number of partners and use condoms to reduce your risks of STDs. If you have any additional questions, please contact your doctor's office. documented in this encounter Summary Purpose Family History No Family History Records Found Advance Directives No Advanced Directives Records Found Additional Source Comments FOR RECORDS PERTAINING TO PATIENTS WHO ARE OR HAVE BEEN ENROLLED IN A CHEMICAL DEPENDENCY/SUBSTANCE ABUSE PROGRAM, SOME INFORMATION MAY BE OMITTED. This clinical summary was aggregated from multiple sources. Caution should be exercised in using it in the provision of clinical care. This summary normalizes information from multiple sources, and as a consequence, information in this document may materially changethe coding, format and clinical context of patient data. In addition, data may be omittedin some cases. CLINICAL DECISIONS SHOULD BE BASED ON THE PRIMARY CLINICAL RECORDS. [employer] provides no warranty or guarantee of the accuracy or completeness of information in this document. UNRECOGNIZED CONTENT PROVIDED BELOW FOR UNRECOGNIZED SECTION Source Comments In the event this information is protected by the Federal Confidentiality of Alcohol and Drug Abuse Patient Records regulations: The Federal rules restrict any use of the information to criminally investigate or prosecute any alcohol or drug abuse patient.[facility] the event this information is protected by the Federal Confidentiality of Alcohol and Drug Abuse Patient Records regulations: The Federal rules restrict any use of the information to criminally investigate or prosecute any alcohol or drug abuse patient.[facility] Hospital[facility] the event this information is protected by the Federal Confidentiality of Alcohol and Drug Abuse Patient Records regulations: The Federal rules restrict any use of the information to criminally investigate or prosecute any alcohol or drug abuse patient.[facility] the event this information is protected by the Federal Confidentiality of Alcohol and Drug Abuse Patient Records regulations: The Federal rules restrict any use of the information to criminally investigate or prosecute any alcohol or drug abuse patient.[facility] Hospital[facility] the event this information is protected by the Federal Confidentiality of Alcohol and Drug Abuse Patient Records regulations: The Federal rules restrict any use of the information to criminally investigate or prosecute any alcohol or drug abuse patient.[facility] Hospital[facility] the event this information is protected by the Federal Confidentiality of Alcohol and Drug Abuse Patient Records regulations: The Federal rules restrict any use of the information to criminally investigate or prosecute any alcohol or drug abuse patient.[facility] UNRECOGNIZED CONTENT PROVIDED BELOW FOR UNRECOGNIZED SECTION Reason for Visit Reason Onset Date Comments Toothache 02/07/2020 Status Reason Specialty Diagnoses / Procedures Referred By C ontact Referred To Contact Closed BREAK OUT WORKER Diagnoses exam 6 week Ray Abdalla, Procedures EST PATIENT VISIT LEVEL 4 EST PATIENT VISIT LEVEL 5 [address] [place], [place] [id number] Phone: [place] [address] Fax: Fax: [phone] Status Reason Specialty Diagnoses / Referred By Referred To Procedures Contact Contact Authorized BREAK OUT WORKER Diagnoses ob Hesham Henderson, Procedures EST [facility] [address] [place] [id number] Phone: Fax: Fax: [phone] Reason Onset Date Comments Results 02/26/2020 UNRECOGNIZED CONTENT PROVIDED BELOW FOR UNRECOGNIZED SECTION Miscellaneous Notes Telephone Encounter - AdrianaSuzy bermudez SHEILA - 02/07/2020 9:09 AM EDTPatient is calling in for ATB, she is on vacation has toothache, does not want to go to Urgent Care where she is at. States Urgent Care provider prescribed Augmentin 10/22/2019, she did finish but was unable to get into a dentist, know the toothache has returned. Patient does not have PCP, advised to goto Urgent Care where she is. Suzy Adriana SOSA documented in this encounterTelephone Encounter - Benita Jenkins RN - 03/19/2020 10:33 AM EDTPatient notified. Benita Jenkins RN elephone Encounter - Elyssa Henderson - 03/19/2020 8:21 AM EDTNo I was unaware that she didn't know. elephone Encounter - Benita Jenkins RN - 03/18/2020 3:51 PM EDTDM- Did you notify patient yesterday at her visit of +BV results? Attempted to call patient. Unable to leave message. Benita Jenkins RN elephone Encounter - Benita Jenkins RN - 03/10/2020 4:25 PM EDTAttempted again to call patient. Unable to leave voicemail. Checked with pharmacy and patient has not picked up medication either. Left message with mother to have patient call back. Benita Jenkins RN elephone Encounter - Marilin Ramirez LPN - 03/06/2020 4:08 PM EDTAttempted to contact pt, unable to leave message. Pt has appt on 03/17/20 message left on appt note fo r pt to be given results. Marilin Ramirez LPN elephone Encounter - Benita Jenkins RN - 02/29/2020 12:36 PM EDTAttempted to call patient. No option to leave message. Letter sent. Benita Jenkins RN elephone Encounter - Benita Jenkins RN - 02/26/2020 8:53 AM EDTAttempted to call patient. Unable to leave message. MyChart message sent. Benita Jenkins RN elephone Encounter - Benita Jenkins RN - 02/26/2020 8:52 AM EDT----- Message from Elyssa Hylton sent at 02/26/2020 7:59 AM EDT ----- Notify patient of + BV. Will order flagyl. documented in this encounter UNRECOGNIZED CONTENT PROVIDED BELOW FOR UNRECOGNIZED SECTION INFORMATION SOURCE DATE CREATED AUTHOR AUTHOR'S ORGANIZATIO N 03/28/2020 [facility] Torsten redding
== END 2019-11-30 08:20 | disposition home or self-care (01) ==
PROVIDERS: Obstetrics & Gynecology; Referring Provider Obstetrics & Gynecology; Visit Provider Obstetrics & Gynecology
DX: O47.03 False labor before 37 completed weeks of gestation, third trimester (principal); Z3A.36 36 weeks gestation of pregnancy
CPT/HCPCS: 59025; 59050; 80307; 81001; 87081; 87653; 99218; G0378

== ENCOUNTER 2019-12-25 20:06 | Inpatient (IN) | payer MEDICAID, OTHER, SELFPAY ==
[2019-12-25] VITALS (24 sets, daily range): BP systolic 108–161; BP diastolic 56–83; PULSE 54–109; TEMP 36.5–37.1; O2SAT 83–100; BMI 28.5
[2019-12-25] MEDS: Lactated Ringers 500 ML 999 ML IV ×2 (20:10→22:23)
[2019-12-25] MEDS: Lactated Ringers 1,000 ML 200 ML IV (20:40)
[2019-12-25 20:42] LABS: Absolute Lymphocyte Count 2.05 X10^3/uL (0.83-4.51); Basophil# 0.04 X10^3/uL; Basophil% 0.2 % (0-1); Eosinophil# 0.19 X10^3/uL; Eosinophils% 1.2 % (0-5); Hematocrit 37.8 % (37-47); Hemoglobin 12.8 g/dL (12.0-15.0); Lymphocyte # 2.05 X10^3/ul (4.0); Lymphocyte % 12.6 % (19-41); Mean Corp Hgb Conc 33.9 g/dL (32-36); Mean Corpuscular Hgb 33.2 pg (27.0-32.0); Mean Corpuscular Volume 97.9 fL (81-99); Mean Platelet Vol. 11.9 fl (6.2-12.0); Monocyte# 0.96 X10^3/uL; Monocyte% 5.9 % (0-10); NRBC Flagged by Analyzer 0 % (0-5); Neutrophil # 12.96 X10^3/uL (2.7-7.7); Neutrophil % 79.6 % (47-70); Platelet Count 190 K/mm3 (150-450); RBC Distribution Width SD 42.6 fl (35.1-43.9); Red Blood Count 3.86 M/mm3 (4.2-5.4); White Blood Count 16.3 K/mm3 (4.4-11.0)
--- NOTE | 2019-12-25 21:21 | PCM.HP.OB ---
History Date of Admission: 03/19/14 - l&D triage Final ROGELIO: 12/24/19 Final ROGELIO Source: LMP Gestational age: 40 Weeks and 1 Days History of this : This is a 24 year-old, @ 40.1 wks in active labor Allergies No Known Allergies Allergy (Verified 12/25/19 20:25) Home Medications: Home Medications RX: Vits [Prenatabs FA ] 1 tablet PO DAILY 09/29/17 Smoking Status: Former smoker Alcohol: Occasional Substance Use Type: Marijuana Number of Fetus(es): 1 NST - FHR Rate Baby A Baseline: 140 Variability:: Moderate Accelerations:: 15 x 15 Decelerations:: None NST Reactive:: Yes FHR Category:: Category I Uterine Activity:: q2-4 History Past Pregnancies: Past Pregnancies Delivery Date Name GA/ Weeks Outcome Route Wt Sex Labor Length Anesthesia Delivery Location Provider FOB Labs: gbs negative Expected Infant Delivery Method: Spontaneous Vaginal Review of Systems Eyes: Denies: Blurred vision, Vision Change HEENT: Denies: Head Aches Cardiovascular: Denies: Chest Pain Respiratory: Denies: Cough Physical Exam Vitals: Vital Signs Temp Pulse BP Pulse Ox 97.7 F L 54 L 118/80 83 12/25/19 20:52 12/25/19 20:54 12/25/19 20:52 12/25/19 20:54 General: Alert, Oriented x3 Abdomen: Soft, Non Tender, - - gravid Neurological: Cranial nerves II-XII grossly intact 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
[2019-12-25 22:28] LABS: Amphetamine Urine VISTA NEGATIVE (<1000 ng/mL); Barbiturate Urine VISTA NEGATIVE (< 200 ng/mL); Benzodiazepine Urine VISTA NEGATIVE (< 200 ng/mL); Cocaine Urine VISTA NEGATIVE (< 300 ng/mL); Ecstacy Urine VISTA NEGATIVE (< 500 ng/mL); Methadone Urine VISTA NEGATIVE (< 300 ng/mL); PCP Urine VISTA NEGATIVE (< 25 ng/mL); THC Urine VISTA NEGATIVE (< 50 ng/mL); Vista UDS pH Range 6
[2019-12-25] MEDS: fentaNYL-bupivacaine (epidural) 100 ML BAG EPIDURAL (23:09)
[2019-12-26] VITALS (37 sets, daily range): BP systolic 79–146; BP diastolic 45–87; PULSE 57–130; RESP 14–16; TEMP 36.4–37.1; O2SAT 97–100
[2019-12-26] MEDS: Ondansetron 4 MG/2 ML Vial IV (00:10)
[2019-12-26] MEDS: Lactated Ringers 500 ML 999 ML IV (00:18)
--- NOTE | 2019-12-26 01:16 | PCM.PN.BLA ---
Progress Note pt seen at bedside, resting comfortably- epidural in place. VE: 7-8/80/-2 AROM performed- clear fluid. STROKE Vital Signs/Narrative: Vital Signs Temp Pulse BP Pulse Ox 12/26/19 01:14 81 110/83 H 12/26/19 01:13 98.0 F 98 12/26/19 01:06 71 98 12/26/19 01:02 69 105/59 L 12/26/19 01:01 97 12/26/19 00:57 71 97 12/26/19 00:52 72 99 12/26/19 00:47 67 99 12/26/19 00:42 69 98 12/26/19 00:37 98.0 F 75 113/55 L 99 12/26/19 00:31 96 126/87 H 12/26/19 00:23 97 107/57 L 12/26/19 00:19 80 95/53 L 12/26/19 00:17 76 79/45 L 12/26/19 00:02 81 100 12/26/19 00:00 90 107/58 L 12/25/19 23:29 96 133/78 H 12/25/19 23:28 105 H 98 12/25/19 23:26 90 135/68 H 12/25/19 23:25 90 161/74 H 12/25/19 23:23 99 98 12/25/19 23:18 87 98 12/25/19 23:14 90 108/57 L 12/25/19 23:13 94 98 12/25/19 23:10 98.7 F 92 111/56 L 97 12/25/19 23:08 89 98 12/25/19 23:06 94 113/58 L 12/25/19 23:03 92 99 12/25/19 22:59 105 H 121/80 H 12/25/19 22:58 81 99 12/25/19 22:55 90 128/83 H 12/25/19 22:53 79 98 12/25/19 22:48 86 100 12/25/19 22:39 97.7 F L 104 H 110/72 98 12/25/19 21:51 97.9 F 96 117/77 98
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
[2019-12-26] MEDS: Oxytocin 30 units/NS 500 ml 30 UNITS/500 ML IV.SOLN 334 UNITS IV (02:13)
--- NOTE | 2019-12-26 02:26 | PCM.OPRPT ---
Vaginal Delivery Maternal Presentation: Active Labor Amniotic Membrane Rupture Type: Artificial Amniotic Fluid Description: Clear Final ROGELIO: 12/24/19 Gestational age: 40 Weeks and 2 Days Date of Procedure: 12/26/19 Pre-Operative Diagnosis: term gestation, active labor Post-Operative Diagnosis: same, live female infant Surgery/ Procedure Performed: Spontaneous Vaginal Delivery Type of Anesthesia: Epidural Description of Procedure: of live female infant born without complication. Good maternal pushing efforts - head delivered followed by anterior shoulder. delivered and placed on maternal chest for immediate skin to skin. Delayed cord clamping performed. Presentation: Vertex Placental Delivery Description: Spontaneous Placenta Disposition: [facility] Cord Vessel Description: 3 Vessels Nuchal Cord Compression: Without compression Cord Entanglement: None Drain: Baptiste to straight drain Estimated Blood Loss: 100 Infant A gender: Female (1 minute): 8 (5 minute): 9 Episiotomy Description: None Laceration: None Medications given after delivery: IV Pitocin Complications: None
[2019-12-26] MEDS: Ibuprofen 600 MG Tablet PO ×3 (04:55→20:36)
[2019-12-26] MEDS: Etonogestrel 68 MG IMPLANT SQ (08:56)
--- NOTE | 2019-12-26 09:01 | PCM.PN.OB ---
Subjective: Requesting Nexplanon insertion for control. No contraindications. Patient identified by name and . Reviewed risks, benefits and alternatives. Consent form reviewed and signed. Objective: Left arm raised above head. Site marked. Skin cleansed with betadine. 1% Lidocaine instilled into insertion area. Nexplanon inserted without difficulty. Patient tolerated well. Hemostasis achieved. Steri strips applied and pressure dressing. - Physical Exam Vitals/I&O's: Vital Signs Temp Pulse Resp BP Pulse Ox 98.1 F 83 16 117/65 97 12/26/19 08:41 12/26/19 08:41 12/26/19 08:41 12/26/19 08:41 12/26/19 04:22 Oxygen Delivery Method Room Air Weight: 176 lb 9.6 oz Body Mass Index (BMI) 28.5 Intake and Output for Last 24 Hours 12/24/19 12/25/19 12/26/19 23:59 23:59 23:59 Intake Total 1343.33 / 1343.33 1573.33 / 1573.33 Output Total 1000 / 1000 Balance 1343.33 / 1343.33 573.33 / 573.33 Laboratory Results 12/25/19 20:10: WBC 16.3 H, RBC 3.86 L, Hgb 12.8, Hct 37.8, MCV 97.9, MCH 33.2 H, MCHC 33.9, RDW Std Deviation 42.6, RDW Coeff of Madeleine 12.0, Plt Count 190, MPV 11.9, Immature Gran % (Auto) 0.500, Neut % (Auto) 79.6 H, Lymph % (Auto) 12.6 L, [place] % (Auto) 5.9, Eos % (Auto) 1.2, Baso % (Auto) 0.2, Absolute Neuts (auto) 13.0 H, Absolute Lymphs (auto) 2.05, Nucleated RBC % 0 12/25/19 20:10: Blood Type O POSITIVE, Antibody Screen NEGATIVE 12/25/19 20:50: COVID-19 (OZZIE) Not Detected 12/25/19 21:50: Urine Opiates Screen NEGATIVE, Urine Methadone Screen NEGATIVE, Ur Barbiturates Screen NEGATIVE, Ur Phencyclidine Scrn NEGATIVE, Ur Amphetamines Screen NEGATIVE, U Methamphetamin-MDMA NEGATIVE, U Benzodiazepines Scrn NEGATIVE, Urine Cocaine Screen NEGATIVE, U Cannabinoids Screen NEGATIVE, Ur Drug Screen Comment Current Medications Acetaminophen (Tylenol) 1,000 mg PO Q8H PRN PRN PRN Reason: Pain Score 1-10/10 Bisacodyl (Dulcolax) 10 mg RECTAL UD PRN PRN Reason: If no BM Dibucaine (Dibucaine) 1 applic TOPICAL TID PRN PRN; Protocol PRN Reason: Discomfort Hydrocortisone (Hytone) 1 applic TOPICAL TID PRN PRN; Protocol PRN Reason: Discomfort Ibuprofen (Motrin) 600 mg PO Q6H PRN PRN PRN Reason: Pain Score 1-10/10 Last Admin: 12/26/19 04:55 Dose: 600 mg Documented by: Methylergonovine Maleate (Methergine) 0.2 mg IM X1 PRN PRN Reason: Excess bleeding/uterine atony Ondansetron HCl (Zofran) 4 mg IV Q4H PRN PRN PRN Reason: Nausea Senna/Docusate Sodium (Senokot-S, Purnima-Colace) 1 - 2 tablet PO DAILY PRN PRN PRN Reason: Constipation Simethicone (Mylicon) 80 mg PO PCHS PRN PRN Reason: Indigestion/Stomach pain Sodium Chloride () 5 - 15 ml IV UD PRN PRN Reason: SALINE FLUSH Medical Necessity - Tobacco Use Smoking Status: Former smoker Assessment/Plan All Active Problems 36 weeks gestation of (Acute) Uterine contractions (Acute) A: Nexplanon Insertion P: 1) Reviewed dressing to be removed after 24hrs. 2) Will follow up for visit.
[2019-12-26] MEDS: Acetaminophen 500 MG Tablet 1000 MG PO ×2 (10:51→18:29)
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
--- NOTE | 2019-12-26 16:45 | CASEMGMT ---
Social Work Labor and Delivery Per MOB's stated consent call [facility]. Obtained an intake appointment, via telephone as is the standard right now with said agency in light of COVID pandemic. Appointment set for 01-03-2020 at 1600 with Carl. Will provide MOB with appointment time and date prior to MOB leaving the hospital. -KATHYA Canchola, MANAGER BIOSTATISTICS
[2019-12-26] MEDS: Senna/Docusate Sodium 1 Tablet PO (20:47)
[2019-12-27] MEDS: Ibuprofen 600 MG Tablet PO ×2 (02:05→08:55)
[2019-12-27] MEDS: Acetaminophen 500 MG Tablet 1000 MG PO ×2 (02:06→10:25)
[2019-12-27 04:07] VITALS: BP 112/67; PULSE 72
[2019-12-27 04:15] VITALS: BP 112/67; PULSE 72; RESP 18; TEMP 36.3
--- NOTE | 2019-12-27 08:18 | PCM.PN.OB ---
Subjective: Patient seen at bedside, doing well. Patient reports good pain control. Mild lochia. Breast-feeding well. Patient requesting DC home today. - Physical Exam Vitals/I&O's: Vital Signs Temp Pulse Resp BP Pulse Ox 97.4 F L 72 18 112/67 97 12/27/19 04:15 12/27/19 04:15 12/27/19 04:15 12/27/19 04:15 12/26/19 04:22 Oxygen Delivery Method Room Air Weight: 80.104 kg Body Mass Index (BMI) 28.5 Intake and Output for Last 24 Hours 12/25/19 12/26/19 12/27/19 23:59 23:59 23:59 Intake Total 1343.33 / 1343.33 1573.33 / 1573.33 Output Total 2100 / 2100 Balance 1343.33 / 1343.33 -526.67 / -526.67 General: Alert, Oriented x3 Abdomen: Soft Neurological: Cranial nerves II-XII grossly intact Current Medications Acetaminophen (Tylenol) 1,000 mg PO Q8H PRN PRN PRN Reason: Pain Score 1-10/10 Last Admin: 12/27/19 02:06 Dose: 1,000 mg Documented by: Bisacodyl (Dulcolax) 10 mg RECTAL UD PRN PRN Reason: If no BM Dibucaine (Dibucaine) 1 applic TOPICAL TID PRN PRN; Protocol PRN Reason: Discomfort Hydrocortisone (Hytone) 1 applic TOPICAL TID PRN PRN; Protocol PRN Reason: Discomfort Ibuprofen (Motrin) 600 mg PO Q6H PRN PRN PRN Reason: Pain Score 1-10/10 Last Admin: 12/27/19 02:05 Dose: 600 mg Documented by: Methylergonovine Maleate (Methergine) 0.2 mg IM X1 PRN PRN Reason: Excess bleeding/uterine atony Ondansetron HCl (Zofran) 4 mg IV Q4H PRN PRN PRN Reason: Nausea Senna/Docusate Sodium (Senokot-S, Purnima-Colace) 1 - 2 tablet PO DAILY PRN PRN PRN Reason: Constipation Last Admin: 12/26/19 20:47 Dose: 2 tablet Documented by: Simethicone (Mylicon) 80 mg PO PCHS PRN PRN Reason: Indigestion/Stomach pain Sodium Chloride () 5 - 15 ml IV UD PRN PRN Reason: SALINE FLUSH Medical Necessity - Tobacco Use Smoking Status: Former smoker Assessment/Plan All Active Problems 36 weeks gestation of (Acute) Uterine contractions (Acute) PPD#1, doing well routine care pain mgmt dc home
--- NOTE | 2019-12-27 08:24 | DCINST_ITS ---
Discharge Diet: No Restrictions Discharge Activity: Return to Normal Activity, May not drive while taking narcotic pain medications., May Shower May resume sexual activity in: 4-6 weeks Additional Activity Instructions:: Nothing in the vagina for 4-6 weeks. You may return to work/school in 6 weeks. Call your doctor if your incision/area has: Continuous Slow Oozing, Sudden Increased Bleeding, Increased Pain/ Swelling, Increased Redness, Foul Smelling Discharge Additional Instructions: If you experience any of the following, contact your healthcare provider. * Bleeding that soaks a pad every hour for 2 hours * Fever 100.4 or higher * Unrelieved incision or abdominal pain * Swelling, redness, discharge or bleeding from your incision or episiotomy site * Your incision begins to separate * Problems urinating (including inability to urinate or burning while urinating). * Visual changes * Severe headache * Flu-like symptoms * Pain or redness in one of both of your breasts * Pain, warmth, tenderness or swelling in your legs, especially the calf area * Frequent nausea and vomiting * Symptoms of depression or anxiety If you experience any of the following, call 911 or go to the nearest Emergency Room. * Chest pain * Problems breathing * Seizure activity * Partial or complete paralysis of a body part, slurred speech, weakness or drooping of the face, or a sudden inability to walk or hold your balance Allergies/Adverse Reactions: Allergies No Known Allergies Allergy (Verified 12/25/19 20:25) Medications to take at Discharge Vits [Prenatabs FA ] 1 tablet PO DAILY 09/29/17 Ibuprofen [Motrin] 600 mg PO Q6H PRN PRN #30 tab 12/27/19 The following prescriptions were given: Ibuprofen [Motrin] 600 mg PO Q6H PRN PRN #30 tab PRN Reason: Pain Score 1-10/10 Transmission Status: Received by [facility]/pharmacy #[id number] When: Call to make an appointment with your doctor in 6 weeks. If you had elevated Blood Pressure or 4th degree laceration you will need to be seen in 2 weeks. Primary Care Physician: Care Physician,No Primary [Primary Care Provider] - Test Results: Test results from this visit will be discussed in further detail at your follow- up appointment, if applicable.
[2019-12-27 08:41] VITALS: BP 136/85; PULSE 63; RESP 16; TEMP 36.3
[2019-12-27 08:44] VITALS: BP 136/85; PULSE 63
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
== END 2019-12-27 11:45 | disposition home or self-care (01) | DRG 807 ==
LOC: WPOUT 20:09 → WP 20:09
PROVIDERS: Admitting Provider Obstetrics & Gynecology; Referring Provider Obstetrics & Gynecology; Visit Provider Obstetrics & Gynecology
DX: O99.324 Drug use complicating childbirth (principal); Z37.0 Single live birth; F12.90 Cannabis use, unspecified, uncomplicated; O99.314 Alcohol use complicating childbirth; Z72.89 Other problems related to lifestyle; Z3A.40 40 weeks gestation of pregnancy; Z87.891 Personal history of nicotine dependence
CPT/HCPCS: 59025; 59050; 80307; 85025; 86850; 86900; 86901; 87635; 99218; G2023; J7120; G0378; J2405; U0003

== ENCOUNTER 2020-08-04 13:15 | Emergency (ER) | payer OTHER, MEDICAID, SELFPAY ==
[2019-12-25 20:27] VITALS: BMI 28.5
[2020-08-04] VITALS (7 sets, daily range): BP systolic 140–158; BP diastolic 87–99; PULSE 87–104; RESP 16–18; TEMP 35.9; O2SAT 98; BMI 27.8
--- NOTE | 2020-08-04 13:50 | ED.DCSUM_ITS ---
History of Present Illness Chief Complaint: Mental Health Informant: Patient Onset: Today Narrative: 25-year-old female presenting with internal stimulation. He has a history of drug abuse as well as depression and anxiety. She states she is hearing voices and states she is trapped in her own words. States she is going to and that there is some kind of spiritual warfare patient states she is not homicidal or suicidal. Past Medical History - Allergies and Home Meds Allergies/Adverse Reactions: Allergies No Known Allergies Allergy (Verified 08/04/20 14:03) Primary Care Physician: Care Physician,No Primary [Primary Care Provider] - Prior records reviewed: Yes Surgical History: no surgical history Lives: With Family Smoking Status: Former smoker Review of Systems General: Denies: Chills, Fever, Sweats Eyes: Denies: Visual changes - bilaterally, Diplopia ENT: Denies: Rhinorrhea, Sore throat Cardiovascular: Denies: Chest pain, Palpitations Respiratory: Denies: Dyspnea, Cough, Dyspnea on exertion Gastrointestinal: Denies: Abdominal pain, Nausea, Vomiting, Diarrhea, Melena, Hematochezia Genitourinary: Denies: Dysuria, Hematuria, Frequency Musculoskeletal: Denies: Back pain, Extremity Pain Neurological: Denies: Headache, Weakness, Parasthesia Psych: Reports: Anxiety, - - Audible hallucinations Physical Exam Inital Vital Signs reviewed: Yes General: Well nourished, No Acute Distress Head: Normocephalic, Atraumatic Eyes: Perrl, EOMI ENT: Moist mucous membranes, No rhinorrhea Cardiovascular: Regular rate, Regular rhythm Respiratory: No distress, CTA bilaterally Skin: Normal color, No rash. Negative for: Cyanosis, Diaphoresis Neurological: Alert, Cranial nerves II-XII grossly intact Psychological: Tearful, Agitated Diagnostic/Tx/Re-eval Laboratory Data 08/04/20 08/04/20 08/04/20 09:00 09:00 09:00 WBC 8.6 RBC 4.83 Hgb 15.7 H Hct 45.4 MCV 94.0 MCH 32.5 H MCHC 34.6 RDW Std Deviation 39.5 RDW Coeff of Madeleine 11.3 L Plt Count 301 MPV 10.7 Immature Gran % (Auto) 0.400 Neut % (Auto) 77.3 H Lymph % (Auto) 14.3 L [place] % (Auto) 6.0 Eos % (Auto) 1.5 Baso % (Auto) 0.5 Absolute Neuts (auto) 6.6 Absolute Lymphs (auto) 1.22 Nucleated RBC % 0 Sodium 137 Potassium 3.3 L Chloride 105 Carbon Dioxide 22.0 Anion Gap 10 BUN 7 Creatinine 0.85 Estim Creat Clear Calc 94.72 Est GFR (MDRD) Af Amer 104 Est GFR (MDRD) Non-Af 86 BUN/Creatinine Ratio 8.2 L Glucose 103 Calcium 9.8 Serum , Qual Urine Opiates Screen Urine Methadone Screen Ur Barbiturates Screen Ur Phencyclidine Scrn Ur Amphetamines Screen U Methamphetamin-MDMA U Benzodiazepines Scrn Urine Cocaine Screen U Cannabinoids Screen Ur Drug Screen Comment Ethyl Alcohol < 3.0 08/04/20 08/04/20 09:00 15:03 WBC RBC Hgb Hct MCV MCH MCHC RDW Std Deviation RDW Coeff of Madeleine Plt Count MPV Immature Gran % (Auto) Neut % (Auto) Lymph % (Auto) [place] % (Auto) Eos % (Auto) Baso % (Auto) Absolute Neuts (auto) Absolute Lymphs (auto) Nucleated RBC % Sodium Potassium Chloride Carbon Dioxide Anion Gap BUN Creatinine Estim Creat Clear Calc Est GFR (MDRD) Af Amer Est GFR (MDRD) Non-Af BUN/Creatinine Ratio Glucose Calcium Serum , Qual NEGATIVE Urine Opiates Screen NEGATIVE Urine Methadone Screen NEGATIVE Ur Barbiturates Screen NEGATIVE Ur Phencyclidine Scrn NEGATIVE Ur Amphetamines Screen POSITIVE H U Methamphetamin-MDMA POSITIVE H U Benzodiazepines Scrn NEGATIVE Urine Cocaine Screen NEGATIVE U Cannabinoids Screen POSITIVE H Ur Drug Screen Comment Ethyl Alcohol - Rhythm Strip Rhythm Strip: Sinus Rhythm Rate: 122 - EKG Initial EKG Interpretation: Sinus Rhythm, No Acute Injury Pattern - Medical Decision Making 25-year-old female presenting with moderate of symptoms. She states she is hearing voices and is difficult to redirect or get a history from. She states she is going through some kind of spiritual warfare. CBC is unremarkable. BMP shows slightly low potassium at 3.2. This was replaced orally. Urine drug screen is positive for amphetamines and cannabinoids. Rapid Covid antigen is negative. Patient was seen by the 7th grade social studies teacher who felt that even though she was not homicidal or suicidal that the patient needed to be admitted for further treatment. Given her normal however I would agree to this. Patient was pink slipped. Impression: 1. Amphetamine abuse 2. Hearing voices ED Disposition - Plan for ED Patient: Disposition: Psychiatric Hospital or Unit Instructions: ED Schizophrenia, Paranoid Type, ED Drug Abuse Referrals: Care Physician,No Primary [Primary Care Provider] -
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
[2020-08-04] MEDS: LORazepam 1 MG Tablet PO (14:07)
[2020-08-04 14:27] LABS: Absolute Lymphocyte Count 1.22 X10^3/uL (0.83-4.51); Absolute Neutrophil Count 6.6 X10^3/uL (2.0-7.7); Basophil# 0.04 X10^3/uL; Basophil% 0.5 % (0-1); Eosinophil# 0.13 X10^3/uL; Eosinophils% 1.5 % (0-5); Hematocrit 45.4 % (37-47); Hemoglobin 15.7 g/dL (12.0-15.0); Lymphocyte # 1.22 X10^3/ul (4.0); Lymphocyte % 14.3 % (19-41); Mean Corp Hgb Conc 34.6 g/dL (32-36); Mean Corpuscular Hgb 32.5 pg (27.0-32.0); Mean Platelet Vol. 10.7 fl (6.2-12.0); Monocyte# 0.51 X10^3/uL; NRBC Flagged by Analyzer 0 % (0-5); Neutrophil # 6.63 X10^3/uL (2.7-7.7); Neutrophil % 77.3 % (47-70); Platelet Count 301 K/mm3 (150-450); RBC Distribution Width CV 11.3 % (11.6-14.6); RBC Distribution Width SD 39.5 fl (35.1-43.9); Red Blood Count 4.83 M/mm3 (4.2-5.4); White Blood Count 8.6 K/mm3 (4.4-11.0)
[2020-08-04 14:42] LABS: Anion Gap 10 (5-15); BUN 7 mg/dL (7-18); BUN/Creat Ratio 8.2 RATIO (10-20); Calcium,Total 9.8 mg/dL (8.5-10.1); Chloride 105 mmol/L (98-107); Creatinine, Serum 0.85 mg/dL (0.55-1.02); EST Glomerular Filtration Rate 86 mL/min (>60); Est Glom Filt Rate - Afr Amer 104 mL/min (>60); Estimated Creatinine Clearance 94.72 ml/min; Glucose 103 mg/dL (74-106); Potassium 3.3 mmol/L (3.5-5.1); Sodium Level 137 mmol/L (136-145)
[2020-08-04 14:55] LABS: Internal QC Validated? YES +Cl - CLEAR BKGD; Pregnancy, Serum, hCG Quali. NEGATIVE Negative
[2020-08-04 14:56] LABS: Alcohol, Blood (Medical)-Serum < 3.0 mg/dL
--- NOTE | 2020-08-04 15:19 | CM.ED ---
SOCIAL WORK Referral faxed [facility]. Pending review at this time. Danii Vogt, OUTREACH CONSULTANT, PUMPER GAUGER APPRENTICE
[2020-08-04 15:43] LABS: Amphetamine Urine VISTA POSITIVE (<1000 ng/mL); Barbiturate Urine VISTA NEGATIVE (< 200 ng/mL); Benzodiazepine Urine VISTA NEGATIVE (< 200 ng/mL); Cocaine Urine VISTA NEGATIVE (< 300 ng/mL); Ecstacy Urine VISTA POSITIVE (< 500 ng/mL); Methadone Urine VISTA NEGATIVE (< 300 ng/mL); PCP Urine VISTA NEGATIVE (< 25 ng/mL); THC Urine VISTA POSITIVE (< 50 ng/mL); Vista UDS pH Range 6
--- NOTE | 2020-08-04 16:05 | EKG12_ITS ---
Test Reason : MENTAL CLEARANCE Blood Pressure : / mmHG Vent. Rate : 122 BPM Atrial Rate : 122 BPM P-R Int : 132 ms QRS Dur : 066 ms QT Int : 308 ms P-R-T Axes : 037 044 020 degrees QTc Int : 438 ms Sinus tachycardia Otherwise normal ECG Confirmed by SACHA NESBITT, TIFFANY ([id number]), editorial writer YAN BOWEN ([id number]) on 08/07/2020 1:37:41 PM Referred By: ARAM Confirmed By:TIFFANY GONCALVES MD
--- NOTE | 2020-08-04 16:52 | CHAPLAIN ---
Type of Pastoral Visit _x__ Initial Visit ___ Follow-up Visit ___ On-call Visit ___ General Patient Visit ___ Spiritual Assessment ___ Family Conference ___ Bereavement ___ Rapid Response ___ Code Blue ___ Other (describe below) Pastoral Care Referral From _x__ Patient ___ Family ___ Nurse ___ Physician _x__ Photograph Inspector ___ Clinical Laboratory Aide ___ Other (describe below) Sacrament/Intervention _x__ Active listening ___ Anointing ___ Anabaptism ___ Bereavement ___ Communion _x__ Deyanira exploration ___ ___ Life review _x__ Prayer ___ Reconciliation ___ Sacrament of Sick _x__ Supportive presence ___ Wedding ___ Other (describe below) Pastoral Comments request to see patient from ; patient was seeking Prayer and deliverance; pt was talking to people that were not in the room; pt stated that she needed prayer protection and prayer was given; listening and presence given; pt was acting distressed and pacing the room; pt then requested for HRO to come back into room
[2020-08-04] MEDS: Potassium Chloride Oral Tablet 20 MEQ 40 MEQ PO (17:22)
--- NOTE | 2020-08-04 17:48 | CM.ED ---
SOCIAL WORK Received call from Ethan with [facility]. Patient accepted by Dr. Sharpe. Pablo to arrive at 7pm for transport. Nurse to call report to [phone]. Patient and staff updated. Plan: Cristi Vogt MSW, DIGITAL EXPERIENCE MANAGER
--- NOTE | 2020-08-04 17:55 | CM.ED ---
SOCIAL WORK Received call from Ethan with [facility] inquiring about patient's last use of substances due to patient's positive tox screen. Met with patient in room. Patient's friend, Kesha at bedside. Patient gave permission for this worker to speak openly with friend present. Inquired about positive tox screen. Patient admits to drug use and states last use was Tuesday night. Informed patient this worker will be making report to [facility]. Friend states children will be in her care while patient is in hospital. Friend provided name and contact information-Kesha Kang [phone]. Children are currently under the care of patient's family, sister and father. Danii Vogt, PAY CLERK, BIOMED TECH
--- NOTE | 2020-08-05 15:35 | CM.ED ---
SOCIAL WORK Call to [facility] as patient has custody and cares for 3 children ages 6, 2, and 7 months. Report made to Linda regarding patient's positive tox screen for amphetamines and methamphetamines. Informed patient's family and friend/ines Kang were going to assist with care of children while patient in psych facility. Danii Vogt, DRY MILL OPERATOR, PIANO ACCOMPANIST
== END 2020-08-04 19:48 ==
PROVIDERS: Emergency Provider Student in an Organized Health Care Education/Training Program
DX: R44.0 Auditory hallucinations (principal); F15.10 Other stimulant abuse, uncomplicated; F32.9 Major depressive disorder, single episode, unspecified; F41.9 Anxiety disorder, unspecified; Z87.891 Personal history of nicotine dependence
CPT/HCPCS: 80048; 80307; 82077; 84703; 85025; 87426; 93005; 99285

== ENCOUNTER 2021-08-17 18:51 | Emergency (ER) | payer OTHER, MEDICAID, SELFPAY ==
[2021-08-17 18:52] VITALS: BP 131/87; PULSE 89; RESP 16; TEMP 36.6; O2SAT 99; BMI 28.2
[2021-08-17 19:48] LABS: Bacteria 0 SEEN /hpf (None Seen); Mucous, Urine 0 SEEN /hpf (<or=2+); Red Blood Cells-Urine 0 SEEN /hpf (0-5); White Blood Cells 0 SEEN /hpf (0-5)
[2021-08-17 19:59] LABS: Color, Urine Yellow (Yellow); Glucose, Dipstick Normal (Normal); Ketone-Dipstick 15 mg/dl (Negative); Leukocyte Esterase-Dipstick 25 /ul (Negative); Nitrite-Dipstick Negative (Negative); Occult Blood-Urine 250 /ul (Negative); Protein-Dipstick 15 mg/dl (Negative); Specific Gravity, Urine 1.015 (1.002-1.030); Urine Bilirubin Dipstick Negative (Negative); Urine Clarity Clear (Clear); Urine Urobilinogen Normal (Normal)
[2021-08-17 20:06] LABS: Squamous Epithelial Cells - UA 0-5 SEEN /hpf (5-10)
[2021-08-17 20:12] LABS: Amphetamine Urine VISTA POSITIVE (<1000 ng/mL); Barbiturate Urine VISTA NEGATIVE (< 200 ng/mL); Benzodiazepine Urine VISTA NEGATIVE (< 200 ng/mL); Cocaine Urine VISTA NEGATIVE (< 300 ng/mL); Ecstacy Urine VISTA POSITIVE (< 500 ng/mL); Methadone Urine VISTA NEGATIVE (< 300 ng/mL); PCP Urine VISTA NEGATIVE (< 25 ng/mL); THC Urine VISTA POSITIVE (< 50 ng/mL); Vista UDS pH Range 6
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
[2021-08-17 20:35] LABS: Absolute Lymphocyte Count 2.18 X10^3/uL (0.83-4.51); Absolute Neutrophil Count 5.9 X10^3/uL (2.0-7.7); Basophil# 0.03 X10^3/uL; Basophil% 0.3 % (0-1); Eosinophil# 0.33 X10^3/uL; Eosinophils% 3.6 % (0-5); Hematocrit 39.8 % (37-47); Hemoglobin 13.9 g/dL (12.0-15.0); Lymphocyte # 2.18 X10^3/ul (0.83-4.51); Lymphocyte % 23.8 % (19-41); Mean Corp Hgb Conc 34.9 g/dL (32-36); Mean Corpuscular Hgb 32.3 pg (27.0-32.0); Mean Corpuscular Volume 92.6 fL (81-99); Mean Platelet Vol. 10.5 fl (6.2-12.0); Monocyte# 0.73 X10^3/uL; NRBC Flagged by Analyzer 0 % (0-5); Neutrophil # 5.86 X10^3/uL (2.7-7.7); Neutrophil % 64.1 % (47-70); Platelet Count 260 K/mm3 (150-450); White Blood Count 9.2 K/mm3 (4.4-11.0)
[2021-08-17] MEDS: LORazepam 1 MG Tablet PO (20:49)
[2021-08-17] MEDS: diazePAM 5 MG Tablet PO (20:49)
[2021-08-17 21:03] LABS: Alcohol, Blood (Medical)-Serum < 3.0 mg/dL; Internal QC Validated? YES +Cl - CLEAR BKGD; Pregnancy, Serum, hCG Quali. NEGATIVE Negative
[2021-08-17 21:05] LABS: Anion Gap 4 (5-15); BUN 9 mg/dL (7-18); BUN/Creat Ratio 9.7 RATIO (10-20); Calcium,Total 8.9 mg/dL (8.5-10.1); Chloride 109 mmol/L (98-107); Creatinine, Serum 0.93 mg/dL (0.55-1.02); EST Glomerular Filtration Rate 78 mL/min (>60); Est Glom Filt Rate - Afr Amer 94 mL/min (>60); Estimated Creatinine Clearance 85.81 ml/min; Glucose 99 mg/dL (74-106); Potassium 3.4 mmol/L (3.5-5.1); Sodium Level 140 mmol/L (136-145)
== END 2021-08-17 22:18 | disposition home or self-care (01) ==
PROVIDERS: Emergency Provider Emergency Medicine; Visit Provider Emergency Medicine
DX: F19.951 Other psychoactive substance use, unspecified with psychoactive substance-induced psychotic disorder with hallucinations (principal); F22 Delusional disorders; F17.210 Nicotine dependence, cigarettes, uncomplicated; E66.9 Obesity, unspecified; Z68.28 Body mass index [BMI] 28.0-28.9, adult
CPT/HCPCS: 36415; 80048; 80307; 81001; 82077; 84703; 85025; 99284

== ENCOUNTER 2022-03-08 11:51 | Emergency (ER) | payer OTHER, MEDICAID, SELFPAY ==
[2022-03-08 11:54] VITALS: BP 115/92; PULSE 102; RESP 16; TEMP 36.3; O2SAT 99; BMI 28.2
--- NOTE | 2022-03-08 12:00 | ED.RN ---
PT IS ACTING PARANOID IN TRIAGE, WAS DIFFICULT TO GET A BP ON BECAUSE SHE KEPT TAKING IT OFF. PT WAS VERY CONCERNED WHAT SHE WOULD BE TESTED FOR WITH A URINE TEST.
[2022-03-08 12:06] VITALS: BP 115/92; PULSE 102; RESP 16; TEMP 36.3; O2SAT 99
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
== END 2022-03-08 13:46 | disposition home or self-care (01) ==
PROVIDERS: Emergency Provider Emergency Medicine; Visit Provider Emergency Medicine
DX: F22 Delusional disorders (principal); F17.210 Nicotine dependence, cigarettes, uncomplicated
CPT/HCPCS: 99282